=== PATIENT | male | born 1960 | race Caucasian/White ===

== ENCOUNTER → 2022-08-14 13:45 | Outpatient (BNVA) | payer MEDICARE, MEDICAID, SELFPAY | PROVIDERS: PCP Internal Medicine; Visit Provider Nurse Practitioner Family | DX: G47.33 Obstructive sleep apnea (adult) (pediatric) (principal); G47.50 Parasomnia, unspecified; F09 Unspecified mental disorder due to known physiological condition; R41.3 Other amnesia; R41.89 Other symptoms and signs involving cognitive functions and awareness; I10 Essential (primary) hypertension; Z99.89 Dependence on other enabling machines and devices | CPT/HCPCS: 99202 ==

== ENCOUNTER 2022-10-16 13:13 | Outpatient (REF) | payer MEDICARE, MEDICAID, SELFPAY ==
--- NOTE | 2022-10-16 13:18 | EEG_ITS ---
This is a 16 channel EEG with an EKG lead. The patient is reported awake during the tracing. Background EEG rhythm is 10 to 12 hertz 5 to 20 microvolt posteriorly and lower amplitude fast anteriorly. Photic stimulation does not produce any significant abnormality and hyperventilation is unremarkable. Cardiac lead does not reveal any significant abnormality. No sharp wave spikes or paroxysmal tendency noted. IMPRESSION: Unremarkable EEG. MD TAVIA Powers/KENIA / [id number]
== END 2022-10-16 13:14 | disposition home or self-care (01) ==
LOC: HO.NEURO 13:13
PROVIDERS: PCP Internal Medicine; Visit Provider Nurse Practitioner Family
DX: F09 Unspecified mental disorder due to known physiological condition (principal); G47.50 Parasomnia, unspecified; R41.3 Other amnesia
CPT/HCPCS: 95816

== ENCOUNTER 2022-11-18 10:20 | Outpatient (REF) | payer MEDICARE, MEDICAID, SELFPAY ==
--- NOTE | ~2022-11-18 | MR_ITS ---
EXAMINATION: MR BRAIN WITHOUT CONTRAST CLINICAL INFORMATION: Cognitive decline and memory changes. COMPARISON: None available. TECHNIQUE: Multiplanar, multisequence imaging of the brain was performed without contrast. FINDINGS: No diffusion abnormalities are identified to suggest an acute or subacute infarct. The ventricles are normal in size. No mass effect or midline shift is seen. No brain parenchymal signal abnormality is noted. No extra-axial fluid collections are seen. The brainstem and cerebellum are normal. The gradient refocused acquisition is normal. The craniovertebral junction, marrow signal, and midline structures are normal. The major intracranial flow voids at the level of the [place] are preserved. The dural venous sinus flow voids are maintained. The mastoid air cells are well aerated. There is subtotal mucosal opacification of the right sphenoid sinus and moderate ethmoid sinus mucosal thickening bilaterally. There is milder mucosal thickening lining the alan of the maxillary sinuses and dependent frontal sinus cavities bilaterally. MR/MR head/brain wo con IMPRESSION: No acute intracranial process. Normal MRI of the brain. Mucosal thickening in the paranasal sinuses as described, most severely affecting the right sphenoid sinus; correlate for any underlying acute symptomatology.
== END 2022-11-18 10:21 | disposition home or self-care (01) ==
LOC: HO.MRI 10:20
PROVIDERS: PCP Internal Medicine; Visit Provider Nurse Practitioner Family
DX: R41.89 Other symptoms and signs involving cognitive functions and awareness (principal); F09 Unspecified mental disorder due to known physiological condition; R41.3 Other amnesia; G47.50 Parasomnia, unspecified; I10 Essential (primary) hypertension
CPT/HCPCS: 70551

== ENCOUNTER 2022-11-29 13:38 | Outpatient (AMB) | payer MEDICARE, MEDICAID, SELFPAY ==
--- NOTE | 2022-11-29 13:43 | MHC.OFFVIS ---
Intake Vital Signs 11/29/22 13:44 Height 6 ft 1 in Weight 236 lb BMI 31.1 BP 110/82 Blood Pressure Location Rt brachial Position Sitting Pulse 74 Pulse Source Pulse Oximeter Pulse Oximetry (%) 97 Oxygen Delivery Method Room Air Intake Visit Reasons: 3m follow up memory loss -Confirmed Intake Note: Patient presents for 3 month follow up memory loss. Patient states give or take it's been ok, but my family is concerned because this happens often. Allergies shellfish derived Allergy (Severe, Verified 11/29/22 13:46) Anaphylaxis doxycycline Allergy (Unknown, Verified 11/29/22 13:46) Swelling Medication List - Last Reconciled 11/29/22 by Maggie Cervantes, LICO amlodipine 5 mg PO DAILY hydrocortisone 2.5% topical BID ipratropium bromide 2 sprays intranasal TID uf-kp-urycz-lutein-herbal 293 120 mcg-150 mcg -50 mg (Alive Men's 50 Plus Multivitamin) tabs PO pantoprazole 20 mg PO QAM rosuvastatin 40 mg PO DAILY valsartan 160 mg PO DAILY HPI HPI Comments History of Present Illness Details 62-yr-old male presents for f/u visit. Pt endorses the following interval medical history changes: he recently had kidney stones. His cognition is stable- still forgetful. He is not sleeping well. Goes to bed late, and then sleeping late. Endorses that he is on his phone and watching TV at night. Means to go to bed but does not. Only goes to bed earlier when his girlfriend comes over. Previous APAP compliance report shows APAP [id number], max pressure 13.8/hr, 90% overall compliance, 70% compliance > 4 hrs, residual AHI <2/hr. His family wants him to try Melatonin- but he does not want to. He did not try Namenda because he wanted to complete the neuro work-up 1st. The neuro-psych eval is scheduled for Nov. His clari MRI was normal. Although it did show sphenoid inflammation. He note she has had nasal congestion x's 3 yrs- and his previous tx's have not helped. He is f/b ENT- states he was advised to have a procedure to remove the sphenoid inflammation but he declined was worried it would just come back. EEG- Normal Labs- CBC, CMP, ESR, HIV, RPR- normal. PFSH Medical History (Updated 08/14/22 @ 17:20 by LICO Tim) Severe obstructive sleep apnea Asthma HLD (hyperlipidemia) CAD (coronary artery disease) COPD (chronic obstructive pulmonary disease) Diabetes mellitus Allergic rhinitis Chronic cough Nocturnal hypoxemia Surgical History Hx of tonsillectomy History of hernia repair Hx of cardiac cath Hx of CABG Hx of appendectomy Family History Mother Diabetes Hypertension Hyperlipidemia Father Diabetes Brother CAD (coronary artery disease) Sister CAD (coronary artery disease) Social History Alcohol intake: never Patient Tobacco Use Status: Never used Tobacco Review of Systems Const All systems reviewed & are unremarkable except as noted in HPI and below Physical Exam Vital Signs: Last Vital Signs Pulse 74 11/29/22 13:44 BP 110/82 11/29/22 13:44 Pulse Ox 97 11/29/22 13:44 Oxygen Delivery Method Room Air 11/29/22 13:44 BMI result Body Mass Index 31.1 Const General: cooperative and no acute distress Orientation/consciousness: patient oriented x3 HEENT Head: Yes normocephalic Resp Effort & Inspection: normal respiratory effort and able to speak in complete sentences Neuro General: patient oriented x3, gait normal and CN's II-XI intact bilaterally Cognition (Neuro): normal cognition Motor exam (neuro): 5/5 motor strength present throughout Psych Appearance: grossly normal Mental Status: mental status grossly normal Speech and movement: Normal speech and movement present Affect: normal affect Attitude: cooperative Thought process: Normal thought process present Thought content: Normal thought content present Insight: Good insight present (Psych) Judgement: Good judgement present (Psych) Assessment & Plan Assessment & Plan (1) Cognitive dysfunction: Comment: MMSE 27/30. Excellent clock drawing. Code(s): F09 - Unspecified mental disorder due to known physiological condition (2) Parasomnia: Comment: talks, acts out, and feels nocturnal tremors. Code(s): G47.50 - Parasomnia, unspecified (3) RUMA on CPAP: Code(s): G47.33 - Obstructive sleep apnea (adult) (pediatric) Plan Reviewed labs- WNL. Brain MRI w/o- no findings to explain pt;s cognitive s/s. Pt advised to f/u w/ ENT- will forward MRI report to ENT.. EEG- normal. Will f/u on order for comprehensive neuro-psych evaluation. Hold Memantine 5mg qhs. Discussed strategies to improve sleep hygiene. Continue APAP 6-16 cmH2O. f/u in 3 months or sooner prn. Medications: Discontinued memantine Discontinued Reason: Doctor's Order 5 mg PO QPM 30 days 30 tabs 3RF Coding Level of Care Code Est Pt Level 4 (59443) Diagnoses Cognitive dysfunction F09 Parasomnia G47.50 RUMA on CPAP G47.33
[2022-11-29 13:44] VITALS: BP 110/82; PULSE 74; O2SAT 97; BMI 31.1
== END 2022-11-29 14:28 | disposition home or self-care (01) ==
PROVIDERS: PCP Internal Medicine; Visit Provider Nurse Practitioner Family
DX: R41.89 Other symptoms and signs involving cognitive functions and awareness (principal); G47.50 Parasomnia, unspecified; G47.33 Obstructive sleep apnea (adult) (pediatric)
CPT/HCPCS: 99214

== ENCOUNTER → 2022-11-29 13:38 | Outpatient (BNVA) | payer MEDICARE, MEDICAID, SELFPAY | PROVIDERS: PCP Internal Medicine; Visit Provider Nurse Practitioner Family | DX: F09 Unspecified mental disorder due to known physiological condition (principal); G47.50 Parasomnia, unspecified; G47.33 Obstructive sleep apnea (adult) (pediatric) | CPT/HCPCS: 99212 ==

== ENCOUNTER 2023-06-12 13:06 | Outpatient (AMB) | payer MEDICARE, MEDICAID, SELFPAY ==
[2023-06-12 13:09] VITALS: BP 102/60; PULSE 78; O2SAT 98; BMI 29.1
--- NOTE | 2023-06-12 13:09 | MHC.OFFVIS ---
Intake Vital Signs 06/12/23 13:09 Height 6 ft 1 in Weight 220 lb 6 oz BMI 29.1 BP 102/60 Blood Pressure Location Rt brachial Position Sitting Pulse 78 Pulse Source Pulse Oximeter Pulse Oximetry (%) 98 Oxygen Delivery Method Room Air Intake Visit Reasons: f/u appt-CONF Jingle Writer Required: No Accompanied by: Self / Same As Patient Allergies shellfish derived Allergy (Severe, Verified 06/12/23 13:15) Anaphylaxis doxycycline Allergy (Unknown, Verified 06/12/23 13:15) Swelling Medication List - Last Reconciled 06/12/23 by LICO Tim amlodipine 5 mg PO DAILY aspirin (Adult Aspirin Regimen) 81 mg PO DAILY hydrocortisone 2.5% topical BID ipratropium bromide 2 sprays intranasal TID kx-qi-uktyt-lutein-herbal 293 120 mcg-150 mcg -50 mg (Alive Men's 50 Plus Multivitamin) tabs PO pantoprazole 20 mg PO QAM rosuvastatin 40 mg PO DAILY valsartan 160 mg PO DAILY HPI HPI Comments History of Present Illness Details 63-yr-old male presents for f/u visit. Pt denies any significant interval medical changes. Pt reports he is still struggling with sleep. Typically he sleeps 6.5-7 hrs, if he sleeps > 8 hrs he will wake up with headache and back pain. Sometimes, if he wakes up to void, he has difficulty falling back asleep. He is prone to staying up late watching TV or on his phone. Typical bedtime 4-7am, or 11am, and then sleeps until it has been 6+ hours. Today, he notes he does try to go to bed earlier when he has an early appointment, but then takes a couple of hours to fall asleep. Note, that he considers today's 1pm appointment as early. He is overall complaint w/ his CPAP- if he does not use he will wake up with a sore throat. Review of compliance repirt shows pt does use it between 12am and 2-3pm. 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 In the past, he barely saw daylight . He is not exercising. Although he is doing PT. He continues to have neck pain f/b pain management. He has not had neuro-psych eval. Compliance Report, 05/12/2023 - 06/10/2023 Average usage (days used) 5 hours 44 minutes Median usage (days used) 5 hours 55 minutes Total used hours (value since last reset - 06/10/2023) 6,373 hours AirSense 10 AutoSet Serial number [id number] Mode AutoSet Min Pressure 6 cmH2O Max Pressure 12 cmH2O, w/ Maximum: 11.7 cmH2O EPR Fulltime EPR level 3 Residual AHI: 2.0/hr PFSH Medical History Severe obstructive sleep apnea Asthma HLD (hyperlipidemia) CAD (coronary artery disease) COPD (chronic obstructive pulmonary disease) Diabetes mellitus Allergic rhinitis Chronic cough Nocturnal hypoxemia Surgical History Hx of tonsillectomy History of hernia repair Hx of cardiac cath Hx of CABG Hx of appendectomy Family History Mother Diabetes Hypertension Hyperlipidemia Father Diabetes Brother CAD (coronary artery disease) Sister CAD (coronary artery disease) Social History Alcohol intake: never Patient Tobacco Use Status: Never used Tobacco Physical Exam Vital Signs: Last Vital Signs Pulse 78 06/12/23 13:09 BP 102/60 06/12/23 13:09 Pulse Ox 98 06/12/23 13:09 Oxygen Delivery Method Room Air 06/12/23 13:09 BMI result Body Mass Index 29.1 Const General: cooperative and no acute distress Orientation/consciousness: patient oriented x3 Resp Effort & Inspection: normal respiratory effort and able to speak in complete sentences Neuro General: patient oriented x3 Cranial nerves: Yes CN's II-XII intact bilaterally Cognition (Neuro): normal cognition Psych Appearance: grossly normal Mental Status: mental status grossly normal Speech and movement: Normal speech and movement present Affect: normal affect Attitude: cooperative Assessment & Plan Assessment & Plan (1) RUMA on CPAP: Code(s): G47.33 - Obstructive sleep apnea (adult) (pediatric) (2) Cognitive dysfunction: Comment: MMSE 27/30. Excellent clock drawing. Code(s): F09 - Unspecified mental disorder due to known physiological condition (3) Circadian rhythm sleep disorder, delayed sleep phase type: Code(s): G47.21 - Circadian rhythm sleep disorder, delayed sleep phase type Plan Brain MRI w/o- no findings to explain pt;s cognitive s/s. Pt advised to f/u w/ ENT- will forward MRI report to ENT.. EEG- normal. Comprehensive neuro-psych evaluation- pt is currently on wait list at [facility]. In the meantime, try Duloxetine 30mg qd- for mood, motivation. Reviewed common side effects including but not limited to risk for worsening mood, advised patient to let us know of any adverse effects. Information shared w/ pt on strategies to improve sleep hygiene and readjust sleep schedule in setting of shift work disorder.. Continue APAP 6-16 cmH2O. f/u in 6 months or sooner prn. Medications: New duloxetine 30 mg PO DAILY 30 caps 3RF 30 days Coding Level of Care Code Est Pt Level 4 (40521) Diagnoses RUMA on CPAP G47.33 Cognitive dysfunction F09 Circadian rhythm sleep disorder, delayed sleep phase type G47.21
== END 2023-06-12 14:05 | disposition home or self-care (01) ==
PROVIDERS: PCP Internal Medicine; Visit Provider Nurse Practitioner Family
DX: G47.33 Obstructive sleep apnea (adult) (pediatric) (principal); R41.89 Other symptoms and signs involving cognitive functions and awareness; G47.21 Circadian rhythm sleep disorder, delayed sleep phase type
CPT/HCPCS: 99214

== ENCOUNTER → 2023-06-12 13:06 | Outpatient (BNVA) | payer MEDICARE, MEDICAID, SELFPAY | PROVIDERS: PCP Internal Medicine; Visit Provider Nurse Practitioner Family | DX: G47.33 Obstructive sleep apnea (adult) (pediatric) (principal); G47.21 Circadian rhythm sleep disorder, delayed sleep phase type; F09 Unspecified mental disorder due to known physiological condition | CPT/HCPCS: 99212 ==

== ENCOUNTER 2023-12-22 09:33 | Outpatient (AMB) | payer MEDICARE, MEDICAID, SELFPAY ==
--- NOTE | 2023-12-22 09:45 | A.OFFVIS_ITS ---
Vital Signs 12/22/23 09:50 Height 6 ft 1 in Weight 227 lb BMI 29.9 BP 138/98 H Blood Pressure Location Rt brachial Position Sitting Intake Visit Reasons: Follow up Intake Note: Patient presents for follow up. Allergies shellfish derived Allergy (Severe, Verified 12/22/23 09:51) Anaphylaxis doxycycline Allergy (Unknown, Verified 12/22/23 09:51) Swelling Medication List - Last Reconciled 12/22/23 by LICO Tim amlodipine 5 mg PO DAILY aspirin (Adult Aspirin Regimen) 81 mg PO DAILY budesonide-formoterol 160-4.5 mcg/actuation 2 puffs inhalation BID duloxetine 30 mg PO DAILY 30 days hydrocortisone 2.5% topical BID ipratropium bromide 2 sprays intranasal TID vv-nr-rdruw-lutein-herbal 293 120 mcg-150 mcg -50 mg (Alive Men's 50 Plus Multivitamin) tabs PO pantoprazole 20 mg PO QAM rosuvastatin 40 mg PO DAILY valsartan 160 mg PO DAILY HPI Comments Details: 63-yr-old male presents for f/u visit. Pt denies any significant interval medical changes. He never started duloxetine- was wary of side effects. Pt reports he is still struggling with sleep. Typically he wants to get 6 hrs of sleep a night. Sometimes sleep longer, but sometimes not. States he can no longer go to sleep prior to 11pm- but then may not actually sleep until 3am-11am. He make take unintentional cat naps- which further prevent him from falling asleep. Once he picks up his phone or starts watching TV, he just does not stop. But he states he needs the TV as background noise. Sometimes, if he wakes up to void, he has difficulty falling back asleep. If he does wake up at night, it can be difficult to fall back asleep. He may start ruminating on old issues. He is overall complaint w/ his CPAP. 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 In the past, he barely saw daylight . He has tried Melatonin at 10pm. He currently lives with his sister and nephew's children's in a 2 floor house. He is not exercising, especially when his back is bothering him more. And does not have anyone to walk with. He completed PT which helped during the session but this did not last. He had a neck injection last month- which did not help much. He was seeing a chiropractor but no longer. He states that at times he is forgetful, especially conversations. He tries to not stress about this too much. He has not had neuro-psych eval. Compliance Report, 09/22/2023 - 12/20/2023 Usage days 87% Usage days > 4 hrs- 63% Average usage (days used) 5 hours 47 minutes AirSense 10 AutoSet Serial number [id number] Mode AutoSet Min Pressure 6 cmH2O Max Pressure 12 cmH2O, w/ Maximum: 11.7 cmH2O EPR Fulltime EPR level 3 Residual AHI: 3.2/hr PFSH Medical History Severe obstructive sleep apnea Asthma HLD (hyperlipidemia) CAD (coronary artery disease) COPD (chronic obstructive pulmonary disease) Diabetes mellitus Allergic rhinitis Chronic cough Nocturnal hypoxemia Surgical History Hx of tonsillectomy History of hernia repair Hx of cardiac cath Hx of CABG Hx of appendectomy Family History Mother Diabetes Hypertension Hyperlipidemia Father Diabetes Brother CAD (coronary artery disease) Sister CAD (coronary artery disease) Social History Alcohol intake: never Patient Tobacco Use Status: Never used Tobacco Physical Exam Vital Signs: Last Vital Signs BP 138/98 H 12/22/23 09:50 BMI result Body Mass Index 29.9 Const General: cooperative and no acute distress Orientation/consciousness: patient oriented x3 HEENT Head: Yes normocephalic Resp Effort & Inspection: normal respiratory effort and able to speak in complete sentences Neuro General: patient oriented x3 Cranial nerves: Yes CN's II-XII intact bilaterally Cognition (Neuro): normal cognition Motor exam (neuro): 5/5 motor strength present throughout Psych Appearance: grossly normal Mental Status: mental status grossly normal Speech and movement: Normal speech and movement present Affect: normal affect Attitude: cooperative Thought process: Normal thought process present Thought content: Normal thought content present Insight: Good insight present (Psych) Judgement: Good judgement present (Psych) Assessment & Plan Assessment & Plan (1) RUMA on CPAP: Code(s): G47.33 - Obstructive sleep apnea (adult) (pediatric) Category: Medical (2) Cognitive dysfunction: Comment: MMSE 27/30. Excellent clock drawing. Code(s): F09 - Unspecified mental disorder due to known physiological condition Category: Medical (3) Circadian rhythm sleep disorder, delayed sleep phase type: Code(s): G47.21 - Circadian rhythm sleep disorder, delayed sleep phase type Category: Medical Plan Brain MRI w/o- no findings to explain pt;s cognitive s/s. Pt advised to f/u w/ ENT- will forward MRI report to ENT.. EEG- normal. Comprehensive neuro-psych evaluation- pt is currently on wait list at [facility]. Pt opted not to try Duloxetine. He is open to trying Amitriptyline 10-20mg qhs. Information shared w/ pt on strategies to improve sleep hygiene and readjust sleep schedule in setting of shift work disorder. - such as setting timer to turn off his phone, stop watching TV, scheduling early day activities. Continue APAP 6-16 [id number] > 4 hrs, as pt has good effect from use. f/u in 6 months or sooner prn. Medications: New amitriptyline 10 - 20 mg (1 - 2 x 10 mg) PO BEDTIME 30 days 60 tabs 3RF Discontinued duloxetine Discontinued Reason: Patient Refused 30 mg PO DAILY 30 days 30 caps 3RF Coding Level of Care Code Est Pt Level 4 (15620) Diagnoses RUMA on CPAP G47.33 Cognitive dysfunction F09 Circadian rhythm sleep disorder, delayed sleep phase type G47.21
[2023-12-22 09:50] VITALS: BP 138/98; BMI 29.9
== END 2023-12-22 10:49 | disposition home or self-care (01) ==
PROVIDERS: PCP Internal Medicine; Visit Provider Nurse Practitioner Family
DX: G47.33 Obstructive sleep apnea (adult) (pediatric) (principal); G47.21 Circadian rhythm sleep disorder, delayed sleep phase type; F09 Unspecified mental disorder due to known physiological condition
CPT/HCPCS: 99214

== ENCOUNTER → 2023-12-22 09:33 | Outpatient (BNVA) | payer MEDICARE, MEDICAID, SELFPAY | PROVIDERS: PCP Internal Medicine; Visit Provider Nurse Practitioner Family | DX: G47.33 Obstructive sleep apnea (adult) (pediatric) (principal); G47.21 Circadian rhythm sleep disorder, delayed sleep phase type; F09 Unspecified mental disorder due to known physiological condition | CPT/HCPCS: 99212 ==

== ENCOUNTER 2024-06-16 13:54 | Outpatient (AMB) | payer MEDICARE, MEDICAID, SELFPAY ==
--- NOTE | 2024-06-16 14:01 | MHC.OFFVIS ---
Vital Signs 06/16/24 14:05 Height 6 ft 1 in Weight 226 lb BMI 29.8 BP 120/70 Blood Pressure Location Rt brachial Position Sitting Pulse 74 Pulse Source Pulse Oximeter Pulse Oximetry (%) 96 Oxygen Delivery Method Room Air Intake Visit Reasons: Follow up Intake Note: Patient presents follow up RUMA. Compliance in chart Fur Trimmer Required: No Accompanied by: Self / Same As Patient Allergies shellfish derived Allergy (Severe, Verified 06/16/24 14:05) Anaphylaxis doxycycline Allergy (Unknown, Verified 06/16/24 14:05) Swelling Medication List - Last Reconciled 06/16/24 by LIOC Tim amitriptyline 10 - 20 mg (1 - 2 x 10 mg) PO BEDTIME 30 days amlodipine 5 mg PO DAILY aspirin (Adult Aspirin Regimen) 81 mg PO DAILY budesonide-formoterol 160-4.5 mcg/actuation 2 puffs inhalation BID hydrocortisone 2.5% topical BID ipratropium bromide 2 sprays intranasal TID sz-gd-yfjyr-lutein-herbal 293 120 mcg-150 mcg -50 mg (Alive Men's 50 Plus Multivitamin) tabs PO pantoprazole 20 mg PO QAM rosuvastatin 40 mg PO DAILY valsartan 160 mg PO DAILY HPI Comments Details: 64-yr-old male presents for f/u visit of RUMA. Pt reports he stopped using his CPAP about a month ago- he feels his RUMA has resolved. After stopping CPAP, he started using an OTC Mullein leaf liquid drops- 2 gtts undiluted everyday, and oil of oregano. He states is now feeling better overall- no longer having dry mouth from the CPAP machine, but also his chronic cough and sputum production has resolved. Pt did have ENT consult but by then his nasal s/s had improved. He also had a bout of kidney stones 2-3 months ago- states he managed this with tea of parsley, lemon, honey. He states his primary bothersome symptom is left arm/shoulder pain and arm tingling- he was scheduled to have a cervical repair however he had to postpone this as his sister was recently diagnosed with acute brown sequard syndrome and he has had to help care for her- he lives with her. He states he needs to f/u with his surgeon. He states his memory is stable- has periods of forgetfulness. He is taking amitriptyline just a couple of times. He has not had the neuro-psych test yet- he is still on the waitlist. 12/22/2023, Previous HPI: Pt denies any significant interval medical changes. He never started duloxetine- was wary of side effects. Pt reports he is still struggling with sleep. Typically he wants to get 6 hrs of sleep a night. Sometimes sleep longer, but sometimes not. States he can no longer go to sleep prior to 11pm- but then may not actually sleep until 3am-11am. He make take unintentional cat naps- which further prevent him from falling asleep. Once he picks up his phone or starts watching TV, he just does not stop. But he states he needs the TV as background noise. Sometimes, if he wakes up to void, he has difficulty falling back asleep. If he does wake up at night, it can be difficult to fall back asleep. He may start ruminating on old issues. He is overall complaint w/ his CPAP. 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 In the past, he barely saw daylight . He has tried Melatonin at 10pm. He currently lives with his sister and nephew's children's in a 2 floor house. He is not exercising, especially when his back is bothering him more. And does not have anyone to walk with. He completed PT which helped during the session but this did not last. He had a neck injection last month- which did not help much. He was seeing a chiropractor but no longer. He states that at times he is forgetful, especially conversations. He tries to not stress about this too much. He has not had neuro-psych eval. Compliance Report, 09/22/2023 - 12/20/2023 Usage days 87% Usage days > 4 hrs- 63% Average usage (days used) 5 hours 47 minutes AirSense 10 AutoSet Serial number [id number] Mode AutoSet Min Pressure 6 cmH2O Max Pressure 12 cmH2O, w/ Maximum: 11.7 cmH2O EPR Fulltime EPR level 3 Residual AHI: 3.2/hr [facility] Medical History Severe obstructive sleep apnea Asthma HLD (hyperlipidemia) CAD (coronary artery disease) COPD (chronic obstructive pulmonary disease) Diabetes mellitus Allergic rhinitis Chronic cough Nocturnal hypoxemia Surgical History Hx of tonsillectomy History of hernia repair Hx of cardiac cath Hx of CABG Hx of appendectomy Family History Mother Diabetes Hypertension Hyperlipidemia Father Diabetes Brother CAD (coronary artery disease) Sister CAD (coronary artery disease) Social History Alcohol intake: never Patient Tobacco Use Status: Never used Tobacco Physical Exam Vital Signs: Last Vital Signs Pulse 74 06/16/24 14:05 BP 120/70 06/16/24 14:05 Pulse Ox 96 06/16/24 14:05 Oxygen Delivery Method Room Air 06/16/24 14:05 BMI result Body Mass Index 29.8 Const General: cooperative and no acute distress HEENT Head: Yes normocephalic Resp Effort & Inspection: normal respiratory effort and able to speak in complete sentences Neuro Other: Alert and oriented with mild short-term memory lapses. Cranial nerves: Yes CN's II-XII intact bilaterally Cognition (Neuro): normal cognition Motor exam (neuro): 5/5 motor strength present throughout Psych Appearance: grossly normal Mental Status: mental status grossly normal Speech and movement: Normal speech and movement present Affect: normal affect Attitude: cooperative Thought process: Normal thought process present Thought content: Normal thought content present Insight: Good insight present (Psych) Judgement: Good judgement present (Psych) Assessment & Plan Assessment & Plan (1) Obstructive sleep apnea: Code(s): G47.33 - Obstructive sleep apnea (adult) (pediatric) Category: Medical (2) Cognitive dysfunction: Comment: MMSE 27/30. Excellent clock drawing. Code(s): F09 - Unspecified mental disorder due to known physiological condition Category: Medical (3) Circadian rhythm sleep disorder, delayed sleep phase type: Code(s): G47.21 - Circadian rhythm sleep disorder, delayed sleep phase type Category: Medical Plan Brain MRI w/o- no findings to explain pt;s cognitive s/s. Pt advised to f/u w/ ENT- will forward MRI report to ENT.. EEG- normal. Comprehensive neuro-psych evaluation- pt is currently on wait list at [facility]. We will request interval ENT consult notes. May use Amitriptyline 10-20mg qhs for sleep. Or may trial nervive nerve relief- OTC alpha lipoic supplement-which may benefit LUE paresthesias and pain. May try OTC nerve relief for LUE numbness/tingling while awaiting f/u on status of cervical spine surgery. Pt has stopped APAP 6-16 [id number] > 4 hrs- feels his sleep apnea has resolved. However, pt plans to have an upcoming cervical surgical repair, and thus pt is advised to undergo in-lab PSG study to assess status of sleep apnea, requesting in-lab sleep study as pt has cognitive impairment and has previously had difficulty performing home sleep studies. f/u in 6 months or sooner prn. Orders: Orders RT PSG in-lab sleep study Today F09 - Unspecified mental disorder due to known physiological condition, G47.33 - Obstructive sleep apnea (adult) (pediatric) Coding Level of Care Code Est Pt Level 4 (43142) Diagnoses Obstructive sleep apnea G47.33 Cognitive dysfunction F09 Circadian rhythm sleep disorder, delayed sleep phase type G47.21
[2024-06-16 14:05] VITALS: BP 120/70; PULSE 74; O2SAT 96; BMI 29.8
--- OUTSIDE RECORDS SUMMARY | 2024-06-16 16:38 | XMS_ITS | Clinical Summary ---
Author Organization [facility] Address [address] [place] [address] Care Team Providers Care Poultry Debeaker Name Role Phone Dallin Briseno MD Primary Care Provider [phone] Social History Tobacco Use Types Packs/Day Years Used Date Smoking Tobacco: Never Assessed Sex and Gender Information Value Date Recorded Sex Assigned at Not on file Gender Identity Not on file Sexual Orientation Not on file Job Start Date Occupation Industry Not on file Not on file Not on file Plan of Treatment Health Maintenance Due Date Last Done Comments Hepatitis C Screening 1960 COVID-19 Vaccine (#1) 1962 Depression Screening 1974 Preventative Health Evaluation 1980 DTap / Tdap / Td (1 - Tdap) 1981 Colon Cancer Screening (Colonoscopy) 2007 Shingrix-Zoster Vaccine (1 of 2) 2012 Influenza Vaccine (#1) 2023 01/14/2020 RSV Adult > 60+ Yrs or Pregn ant (1 - 1-dose 75+ series) 2037 Hepatitis B Vaccines Aged Out No long er eligible based on patient's age to complete this topic Pneumococcal Vaccine Aged Out No long er eligible based on patient's age to complete this topic RSV Ped < 20 months Aged Out No longe r eligible based on patient's age to complete this topic Care Teams Poultry Debeaker Relationship Specialty Start Date End Date Dallin Briseno MD [address] [place] [address] ANDER Baen [phone] PCP - General Internal Medicine 02/21/20
--- OUTSIDE RECORDS SUMMARY | 2024-06-16 16:38 | XMS_ITS | Encounter Summary ---
Author Organization [facility] [place], Address [address] [place] [address] Phone Care Team Providers Care Crystal Calibrator Name Role Phone Phill Meyer MD Primary Care Provider [phone] Encounter Details Date Type Department Care Team (Late st Contact Info) Description 12/31/2022 Documentation Only [facility], [address] [place] [phone] Phill Meyer MD [address] [place] [phone] Social History Tobacco Use Types Packs/Day Years Used Date Smoking Tobacco: Never Assessed Sex and Gender Information Value Date Recorded Sex Assigned at Not on file Legal Sex Male 2:04 PM EDT Gender Identity Not on file Sexual Orientation Not on file documented as of this encounter Plan of Treatment Not on file documented as of this encounter Visit Diagnoses Not on filedocumented in this encounter Care Teams Crystal Calibrator Relationship Specialty Start Date End Date Phill Meyer MD [address] [place] [phone] PCP - General Internal Medicine 12/31/22 documented as of this encounter
--- OUTSIDE RECORDS SUMMARY | 2024-06-16 16:38 | XMS_ITS | Encounter Summary ---
Author Organization [facility], Address [address] [place] [address] Phone Care Team Providers Care Emissions Engineer Name Role Phone Phill Meyer MD Primary Care Provider [phone] Encounter Details Date Type Department Care Team (Late st Contact Info) Description 12/31/2022 Documentation Only [facility], [address] [place] [phone] Phill Meyer MD [address] [place] [address] Social History Tobacco Use Types Packs/Day Years [...] on filedocumented in this encounter Care Teams Emissions Engineer Relationship Specialty Start Date End Date Phill Meyer MD [address] [place] [phone] PCP - General Internal Medicine 12/31/22 documented as of this encounter
--- OUTSIDE RECORDS SUMMARY | 2024-06-16 16:38 | XMS_ITS | Encounter Summary ---
Author Organization [facility], Address [address] [place] [address] Phone Care Team Providers Care Public Administration Professor Name Role Phone Phill Meyer MD Primary Care Provider [phone] Encounter Details Date Type Department Care Team (Late st Contact Info) Description 12/31/2022 Documentation Only [facility], [address] [place] [phone] Phill Meyer MD [address] [place] [phone] Social History Tobacco Use Types Packs/Day Years [...] on filedocumented in this encounter Care Teams Public Administration Professor Relationship Specialty Start Date End Date Phill Meyer MD [address] [place] [phone] PCP - General Internal Medicine 12/31/22 documented as of this encounter
--- OUTSIDE RECORDS SUMMARY | 2024-06-16 16:38 | XMS_ITS ---
Author Organization [facility] Address [address] [place] [address] Care Team Providers Care Medical Record Specialist Name Role Phone Aly Adhikari, * Prabhjot Primary Care Provider Niranjan Grace Unavailable [phone] Migration, Provider Unavailable Unavailable Allergies Allergen (clinical drug ingredient) Drug/Non Drug Allergy documented on EMR Reaction Allergy Type Onset Date Status SHELL FISH. (uncoded) Unknown Allergy [facility] Conversion Encounter Medications Medication SIG (Take, Route, Frequency, Duration) Notes Start Date End Date Status Losartan Potassium 25 MG 1 tab(s) orally once a day Active Omeprazole 40 MG 1 cap(s) orally as needed 12/05/2012 Active SUPREP BOWEL PREP KIT (OBSOLETE) 1.6 G-3.13 G-17.5 G/177 ML 177 ML ORALLY TWICE for 2 DOSE(S) *Please review for potential replacement for e-prescription and drug interaction check* 01/22/2017 Active Omeprazole 40 MG 1 cap(s) orally once a day for 90 days 01/22/2017 Active Encounters Encounter Location Date Provider Diagnosis [facility] [address] [place] [address] 11/22/2023 Provider Migration Gastro-esophageal reflux disease without esophagitis K21.9 and Encounter for screening for malignant neoplasm of colon Z12.11 Assessments Encounter Date Diagnosis (ICD Code) Assessment Notes Treatment Notes Treatment Clinical Notes Section Notes 11/22/2023 Gastro-esophagea l reflux disease without esophagitis (ICD-10 - K21.9) 11/22/2023 Encounter for screening for malignant neoplasm of colon (ICD-10 - Z12.11) Plan Of Treatment Medication Medication Name Sig Start Date Stop Date Notes SUPREP BOWEL PREP KIT (OBSOLETE) 1.6 G-3.13 G-17.5 G/177 ML 177 ML ORALLY TWICE for 2 DOSE(S) 01/22/2017 *Please review for potential replacement for e-prescription and drug interaction check* Omeprazole 40 MG 1 cap(s) orally once a day for 90 days 01/22/2017 Progress Notes * ELIZABETH MENENDEZDOB: [birth year] (64 yo M)Acc No.[id number]:11/22/2023 Patient:?ELIZABETH MENENDEZ Provider:? :1960???Age:63 Y???Sex:Male Daren e:11/22/2023 Address:[address] [place], [place] [phone] Pcp:* Prabhjot Lu M.D. Subjective: * Chief Complaints: * ???1. [facility] To [facility] Con version Encounter. * Medical History:? * Medications:?Taking Omeprazo le 40 MG Capsule Delayed Release 1 cap(s) orally as needed , Taking Losartan Potassium 25 MG Tablet 1 tab(s) orally once a day * Allergies:?SHELL FISH. . Objective: * Vitals:? Assessment: * Assessment: 1.?Gastro-esophageal reflux disease without esophagitis - K21.9 (Primary)???2.?Encounter for screening for malignant neoplasm of colon - Z12.11??? Plan: * Treatment: 2.?Encounter for screening f or malignant neoplasm of colon? Start SUPREP BOWEL PREP KIT (OBSOLETE) LIQUID, 1.6 G-3.13 G-17.5 G/177 ML, 177 ML, ORALLY, TWICE, 2 DOSE(S), 1, Refills 0, Notes to Pharmacist: *Please review for potential replacement for e-prescription and drug interaction check*.?? * Billing Information: * Visit Code:? * Procedure Codes:? * Electronic signature of Prov ider Migration on 06/16/2024 at 04:37 PM EDT Sign off status: Pending * Provider:? Date:?11/22/2023 Generated for Alexis murphy/Eligio/Denizitting on:?06/16/2024 04:37 PM EDT
--- OUTSIDE RECORDS SUMMARY | 2024-06-16 16:38 | XMS_ITS | Clinical Summary ---
Author Organization [facility] Address [address] [place] [address] Care Team Providers Care In Classroom Tutor Name Role Phone Phill Meyer MD Primary Care Provider [phone] Social History Tobacco Use Types Packs/Day Years Used Date Smoking Tobacco: Never Assessed Sex and Gender Information Value Date Recorded Sex Assigned at Not on file Legal Sex Male 2:04 PM EDT Gender Identity Not on file Sexual Orientation Not on file Plan of Treatment Health Maintenance Due Date Last Done Comments Colorectal Cancer Screening: Annual FOBT 2011 Colorectal Cancer Screening: Colonoscopy 2011 Colorectal Cancer Screening: Sigmoidoscopy 2011 Influenza Vaccine (Season Ended) 2024 Hepatitis B Vaccine Aged Out No longe r eligible based on patient's age to complete this topic Pneumococcal Vaccine: Peds ( 0 to 5 Years) and At-Risk Patients (6 to 49 Years) Aged Out No longer eligible b ased on patient's age to complete this topic Insurance Medicare Medicaid [place] Care Teams In Classroom Tutor Relationship Specialty Start Date End Date Phill Meyer MD [address] [address] PCP - General Internal Medicine 12/31/22
--- OUTSIDE RECORDS SUMMARY | 2024-06-16 16:38 | XMS_ITS | Clinical Summary ---
Author Organization [facility] Work4 Address [address] [place] [address] Phone Care Team Providers Care Coater Name Role Phone Phill Meyer MD Primary Care Provider [phone] Allergies Active Allergy Reactions Criticality Noted Date Comments Doxycycline Swelling High 01/03/2020 Paitent had swollen to his face and hands. Doxycycline Monohydrate Swelling High 01/03/2020 Viky had swollen to his face and hands. Shellfish Containing Products Hives High 11/14/2023 Hives and throat closing Medications FREESTYLE LANCETS MISC Use to test blood sugar once daily 06/28/19 21 Active albuterol HFA (PROAIR HFA ; PROVENTIL HFA ; VENTOLIN HFA) 90 mcg/actuation inhaler Sig - Route: Inhale 2 Puffs into the lungs See Admin Instructions. Take 2 puffs in the AM and 2 Puffs in the PM - Inhalation 08/20/19 23 Active alclomethasone (ACLOVATE) 0.05 % cream 05/21/19 24 Active amoxicillin (AMOXIL) 875 mg tablet Take 1 tablet (875 mg total) by mouth 2 (two) times a day. Active aspirin 81 mg EC tablet Take 1 tablet (81 mg total) by mouth 1 (one) time each day. 04/25/19 23 Active azelastine (ASTELIN) 137 mcg (0.1 %) nasal spray Administer 2 sprays into each nostril 2 (two) times a day. 07/18/19 22 Active azithromycin (Zithromax) 250 mg tablet Take by mouth. 10/08/19 24 Active blood-glucose meter kit 1 Device by Not Applicable route. 06/28/19 21 Active budesonide-for moteroL (SYMBICORT) 160-4.5 mcg/actuation inhaler 03/21/19 24 Active cholecalcifero l (VITAMIN D-3) 50 mcg (2,000 unit) capsule Take 50 mcg by mouth. Active fluticasone propion-salmet Robbie (ADVAIR DISKUS) 100-50 mcg/dose diskus inhaler Inhale 1 puff by mouth. 01/23/20 21 Active fluticasone propionate (FLONASE) 50 mcg/actuation nasal spray Administer 2 sprays into each nostril at bedtime. 07/18/19 22 Active fluticasone-um eclidinium-amirah anterol (Trelegy Ellipta) 200-62.5-25 mcg inhaler Inhale 1 puff (200 mcg total) by mouth 1 (one) time each day. 10/15/19 24 Active hydrocortisone 2.5 % cream Apply twice a day as needed in the rash for 10 days 02/29/20 23 Active ipratropium (ATROVENT) 21 mcg (0.03 %) nasal spray 03/28/19 22 Active ipratropium bromide (ATROVENT HFA INHL) Inhale 500 mcg by mouth. 04/25/19 23 Active glucose blood (Freestyle InsuLinx Test Strips) test strip USE TO TEST BLOOD SUGAR ONCE DAILY 11/22/19 21 Active zinc 1 mg/mL injection Take by mouth 1 (one) time each day. Active levocetirizine (XYZAL) 5 mg tablet Take 1 tablet (5 mg total) by mouth 1 (one) time each day. 03/21/19 24 Active predniSONE (DELTASONE) 20 mg tablet 05/14/19 24 Active valsartan (DIOVAN) 160 mg tablet Take 1 tablet (160 mg total) by mouth. 04/25/19 23 Active multivitamin with minerals (CENTRUM/CERTA VIT) 18-400 mg-mcg tablet tablet Take by mouth 1 (one) time each day. Active blood-glucose meter kit 1 Device by Does not apply route Once. 06/28/19 21 Active glucose blood (Freestyle InsuLinx Test Strips) test strip USE TO TEST BLOOD SUGAR ONCE DAILY 11/22/19 21 Active FREESTYLE LANCETS MISC Use to test blood sugar once daily 06/28/19 21 Active predniSONE (DELTASONE) 5 mg tablet PLEASE SEE ATTACHED FOR DETAILED DIRECTIONS 09/22/19 24 Active tezepelumab-ek ko (TEZSPIRE) Inject 1.91 mL (210 mg total) under the skin 1 (one) time. Active furosemide (LASIX) 40 mg tablet Take 1 tablet (40 mg total) by mouth 1 (one) time each day. Active amLODIPine (NORVASC) 5 mg tablet Take 1 tablet (5 mg total) by mouth 1 (one) time each day. 90 each 02/19/20 24 025 Active EpiPen 2-Praveen 0.3 mg/0.3 mL injectionIndic ations:Angioed byron, sequela INJECT 0.3 ML (0.3 MG TOTAL) INTO THE THIGH IF NEEDED FOR ANAPHYLAXIS. USE DIRECTED 2 each 3 03/23/19 25 Active ezetimibe (ZETIA) 10 mg tablet Take 1 tablet (10 mg total) by mouth 1 (one) time each day. 90 each 1 03/09/19 25 Active Additional Information Patient not taking.Reported on 05/07/2024 famotidine (PEPCID) 20 mg tablet Take 1 tablet (20 mg total) by mouth 2 (two) times a day. 01/13/20 24 Active rosuvastatin (CRESTOR) 40 mg tablet TAKE 1 TABLET BY MOUTH EVERY DAY 90 tablet 1 04/12/19 25 Active SUMAtriptan (IMITREX) 50 mg tablet Take 1 tablet (50 mg total) by mouth 1 (one) time if needed for migraine. May repeat dose once in 2 hours if no relief. Do not exceed 2 doses in 24 hours. 9 tablet 5 05/08/19 25 026 Active amitriptyline (ELAVIL) 25 mg tablet TAKE 1 TABLET BY MOUTH EVERYDAY AT BEDTIME 90 tablet 1 06/01/19 25 Active amitriptyline (ELAVIL) 25 mg tablet Take 1 tablet (25 mg total) by mouth at bedtime. 30 each 1 05/08/19 25 025 Discontinued Active Problems Problem Noted Date Diagnosed Date Anterior epistaxis 04/09/2024 Cervical spondylosis 12/23/2023 Overview (01/05/2024): Last Assessment & Plan: Patient reports neck pain that started around 2015, he had fallen asleep sitting up in a chair, his head fell forward quickly, he felt sudden pain in his posterior neck, felt like it was whiplash injury. He notes pain in the left shoulder, anterior lateral arm, at times will have numbness tingling in the fourth >third, fifth digits. He has tried ludy-ivt-ykswgyo meds including NSAIDs, recently tried putting castor oil over the area with a heating pad. No recent physical therapy for his neck. He had cortisone injections x 6 in [place] a few years back, does not feel it helped. More recently he had C7-T1 DANIEL May 2023 that gave 100% reduction in left arm paresthesias, then had bilateral C6 TFE November 2023 that gave significant improvement in his left arm pain for about 2 months, symptoms are now recurring. He does not feel the most recent cervical injection helped his neck pain. He also has history of left subacromial injection April 2023, it did temporarily help his shoulder pain. He states there are times he trips on and off, may have some mild balance issues, jumpy legs at rest. He rates his neck pain a 7/10 for example after standing to cook for a period of time. There are days where his pain will be a 2/10, but seems to be worse with activity. He denies headaches, unless he does not sleep well at night . He had C-spine MRI 09-23 at [facility] that shows C6-7 degenerative disc osteophyte, severe left foraminal stenosis, moderate right foraminal stenosis. No cord compression, no signal change seen in the spinal cord at any level. I reviewed the MRI images with the patient in detail on the computer. Mr. Ramon has overall mild findings on his C-spine MRI, however he does have C6-7 spondylosis with severe left foraminal stenosis, could be contributing to his neck pain and left arm symptoms. He may also have a component of left shoulder degenerative changes contributing, did see some improvement after left subacromial shoulder injection. I gave him prescription for physical therapy for the neck and shoulder, asked him to follow-up afterward. We also talked about trying acupuncture, name provided. I will also review his MRI with Dr. Watson, see if she would recommend either C6-7 artificial disc replacement or ACDF if patient is not improving after PT (with traction). I asked him to call with any concerns or questions. Assessment & Plan (04/07/2024 2:51 PM EST): Mr. Ramon continues to suffer with neck pain and radiation to the left upper extremity. Things have gotten much worse over the past couple of months. He describes pain radiating from the neck to the left shoulder, down the triceps, ulnar forearm into all of the fingers of the left hand. He denies right-sided symptoms. Make it to therapy after his last visit because of some car issues. At this point his symptoms are so bad that he would rather just proceed with surgery. Dr. Watson had previously reviewed his MRI from [facility] revealing degenerative changes most significant at C6-7. C6-7 anterior cervical discectomy and fusion was offered. At this point the patient would like to except that offer. Risks, benefits, and alternatives to surgery were discussed in detail. He asked appropriate questions, appears to understand, and wishes to proceed. I gave him a bottle of Hibiclens and directions on how to use it. He asked for something for pain and I told him I would send in a prescription for a Medrol Dosepak but I could not offer him narcotic pain medication until the time of surgery. He did have a prescription for prednisone in the past but has not used that in many months. I told him that Dr. Watson's secretary to board of commissioners would be in touch with him later this week about scheduling. Chronic bilateral low back pain without sciatica 12/23/2023 Overview (01/05/2024): Last Assessment & Plan: Patient also complains of low back pain, states this last week his back pain has been significant, he has spasm, has a hard time standing and straightening up. He tried ibuprofen 800 mg but it is not helping. He states his back feels stiff, like he is a hunched back. He has had issues on and off with his low back, but states this flareup the past week was a 7-8/10 pain. Prior to a week ago he would have rated his low back pain on average of 2/10. He had physical therapy for his low back end of 2022, went for about 3 months. He states they had been stretching his leg, he had worse pain so they stopped, did not feel it was helping. He does feel the stretching exercises helped him while he was in PT, continues those at home. Mr. Ramon has low back pain, with minimal findings on MRI. He had MRI lumbar spine 09/02/2023 at [facility], no significant stenosis noted, I reviewed images with patient in detail on the computer. We will address his neck pain first since this is his primary issue. We did talk about trying acupuncture, name provided. We also talked about trying statin vacation x 2 weeks to see if this helps his low back/muscular stiffness and pain. I looked back at his labs, a year ago he had lipid panel WNL. However he will call his PCP to make sure they will clear him for the statin vacation. He has history of triple bypass 2017. Class 1 obesity 11/14/2023 Groin pain, right 05/02/2022 Dizziness and giddiness 03/26/2022 Overview (04/19/2024): Dizziness and giddiness; Note: Date Diagnosed: 03/26/2022 10:12 AM (R42) Sensorineural hearing loss (SNHL) of both ears 0 03/26/2022 Overview (04/19/2024): Sensorineural hearing loss, bilateral; Note: Date Diagnosed: 03/26/2022 10:12 AM (H90.3) Vasomotor rhinitis 03/26/2022 Overview (04/19/2024): Vasomotor rhinitis; Note: Date Diagnosed: 03/26/2022 10:45 AM (J30.0) Nocturnal hypoxemia 01/09/2021 Chronic cough 06/16/2020 Perennial allergic rhinitis 06/16/2020 Diabetes mellitus type 2, co ntrolled, without complications ([facility] V24, [facility] V28) 02/06/2020 Overview (11/14/2023): 02/2020 Lab test negative for COVID-19 virus 01/20/2020 COPD (chronic obstructive pu lmonary disease) ([facility] V24, [facility] V28) 12/22/2019 Asthma 12/07/2019 CAD (coronary artery disease) 12/07/2019 Overview (11/14/2023): 04/2018 Triple bypass Last Assessment & Plan: The patient has a history of coronary artery disease. He denies any chest pain with exertion. The patient underwent a coronary artery bypass surgery in April 2018. Afterwards, he was complaining of episodes of chest discomfort and he underwent a nuclear stress test in December 2018 that suggested the presence of ischemia. As a result, he underwent a new left heart catheterization in January 2019 that showed patent bypass grafts and unchanged muscogee multivessel CAD. On today's visit, the patient complains of occasional chest tightness sensation during his coughing spells. However, he denies any exertional angina. As such, his chest discomfort that occurs during his coughing spells is not likely to be cardiac in nature. The patient is currently on medical therapy with amlodipine, rosuvastatin, and aspirin. At this point, would recommend to continue his current medical therapy. Assessment & Plan (03/08/2024 12:15 PM EST): The patient has a history of coronary artery disease. Currently, the patient denies any chest pain at rest or with exertion. The patient continues on secondary preventive therapy for CAD, including: aspirin, statin. Will continue current therapy. The patient has a history of coronary artery disease. During today's visit, we reviewed the warning signs that should prompt an urgent medical evaluation. Specifically, we discussed that the patient should go to the hospital if she develops any chest discomfort at rest or worsening chest discomfort with exertion. Depression 12/07/2019 Overview (11/14/2023): Took Zoloft, stopped it because he wasn't feeling any better. GERD (gastroesophageal reflux disease) 0 Overview (11/14/2023): H/o stomach ulcer Hyperlipidemia 12/07/2019 Overview (11/14/2023): Last Assessment & Plan: The patient has a history of hyperlipidemia. He also has a history of coronary artery disease. He is currently on rosuvastatin. We will continue his current therapy. Assessment & Plan (03/08/2024 12:15 PM EST): The patient has a history of hyperlipidemia. The patient is currently on rosuvastatin 40 mg orally daily. We will order a new lipid panel to evaluate the patient's current lipid control and determine if any adjustment are needed in the lipid lowering therapy. Orders: Comprehensive metabolic panel; Future Lipid panel; Future Hypertension 12/07/2019 Overview (11/14/2023): Last Assessment & Plan: The patient has a history of arterial hypertension. The patient's blood pressure today was noted to be well controlled. We'll continue the current antihypertensive medication regimen. Assessment & Plan (03/08/2024 12:15 PM EST): The patient has a history of arterial hypertension. The patient's blood pressure today was noted to be well controlled. We'll continue the current antihypertensive medication regimen. RUMA (obstructive sleep apnea) 12/07/2019 Overview (11/14/2023): CPAP 6-16 through [facility] Overnight oxymetry on 05/09/2020 shows O2>90-99.8% of time SMS Home Sleep Apnea Test: Date 01/03/2021; Wt 243#; BMI 32; SVEN (AHI) 35, AI 4; HI 31; Unclassified apneas 0; Obstructive apneas 24; Central apneas 0; Mixed apneas 0; hypopneas 214; average oxygen saturation 90% (lowest 78% with saturations <88% for 5% or more of study) - Obstructive Sleep Apnea - severe; mostly hypopneas with some obstructive apneas; with sleep related hypoventilation by 2020 home sleep apnea test. Resolved Problems Problem Noted Date Diagnosed Date Resolved Date Dyspnea 05/28/2022 01/08/2024 Overview (11/14/2023): Last Assessment & Plan: The patient continues to report dyspnea on exertion associated with chest discomfort. He explains this normally occurs when he is walking up and down stairs or uphill. He underwent a diagnostic cardiac catheterization April 25, 2022 which showed no changes to coronary anatomy and patent grafts likely reflecting a false positive nuclear stress test as well as noncardiac related shortness of breath/chest discomfort. He has not utilized his inhalers as needed. He is compliant with his CPAP. We discussed his symptoms and results of his catheterization in great detail. His symptoms are likely related to his history of asthma. I have encouraged him to use his inhalers as prescribed. He plans to follow-up with pulmonology. He has an appointment to see them in August, however he will try to get an appointment earlier. Patient advised to seek emergency medical attention by calling 911 if they were to develop severe dyspnea, chest pain that did not resolve with rest or nitroglycerin, or if they were to faint. Encounters Date Type Department Care Team Description 05/31/2024 4:19 PM EDT - 05/31/2024 11:59 PM EDT Hospital Encounter [facility] CT Scan [address] [place] [phone] Acute intractable headache, unspecified headache type; Primary hypertension Discharge Disposition: Home or Self Care 05/28/2024 Telephone Neurosurgery [facility] [address] [place] [phone] [place], [place] 05/27/2024 Telephone [facility] [address] [place] [phone] Barber Poole MD Pre-op Visit 05/07/2024 8:30 AM EST Office Visit Internal Medicine - [place] [address] [place] [address] Phill Meyer MD Acute intractable headache, unspecified headache type (Primary Dx); Primary hypertension 04/19/2024 Telephone Internal Medicine - [place] [address] [facility] [address] [place] [address] Phill Meyer MD Medication 04/18/2024 11:56 AM EST - 04/18/2024 2:16 PM EST Emergency [facility] Emergency [address] [place] [phone] Jae Madsen MD Influenza A (Primary Dx) Discharge Disposition: Home or Self Care 04/08/2024 Telephone Internal Medicine - [place] [address] [place] [phone] 04/07/2024 1:00 PM EST Office Visit Neurosurgery [facility] [address] [facility] [address] [place] [address] Adam Florian PA Cervical spondylosis (Primary Dx) from Last 3 Months Immunizations Name Administration Dates Next Due Influenza, Unspecified 01/14/2020 Zoster recombinant (Shingrix) 19yo and older 01/2023,06/29/2022 Surgical History Surgery Date Site/Laterality Comments CORONARY ARTERY BYPASS GRAFT 04/2018 PROCEDURE: HISTORICAL CABG; COMMENT: x 3 HERNIA REPAIR 2008 PROCEDURE: HISTORICAL HERNIA REPAIR/UMB CARDIAC CATHETERIZATION 01/17/2019 PROCEDURE: HISTORICAL CARDIAC CATH; COMMENT: Severe muscogee CAD- med management APPENDECTOMY 1973 PROCEDURE: HISTORICAL APPENDECTOMY TONSILLECTOMY 1972 PROCEDURE: HISTORICAL TONSILLECTOMY Medical History Medical History Date Comments Prediabetes 12/07/2019 DX:Prediabetes CAD (coronary artery disease) 12/07/2019 DX :CAD (coronary artery disease); COMMENT: Triple bypass Hypertension 12/07/2019 DX:Hypertension Hyperlipidemia 12/07/2019 DX:Hyperlipidemi a Asthma 12/07/2019 DX:Asthma Depression 12/07/2019 DX:Depression RUMA (obstructive sleep apnea) 12/07/2019 DX :RUMA (obstructive sleep apnea); COMMENT: CPAP Chronic CHF (congestive hear t failure) ([facility] V24, [facility] V28) 12/07/2019 DX:Chronic CHF (congestive heart failure) ([facility]) GERD (gastroesophageal reflux disease) 0 DX:GERD (gastroesophageal reflux disease); COMMENT: H/o stomach ulcer COPD (chronic obstructive pu lmonary disease) ([facility] V24, [facility] V28) 12/22/2019 DX:COPD (chronic o bstructive pulmonary disease) ([facility]) Memory changes DX:Memory change s Anxiety disorder DX:Anxiety diso rder Leg weakness DX:Leg weakness Family History Medical History Relation Name Comments Coronary artery disease Brother Sten t Diabetes Father Diabetes Mother Hypertension Coronary artery disease Sister Relation Name Status Comments Brother Father Mother Sister Social History Tobacco Use Types Packs/Day Years Used Date Smoking Tobacco: Never Smokeless Tobacco: Never Tobacco Cessation:Counseling Given: Not Answered Alcohol Use Standard Drinks/Week Comments Yes 0 (1 standard drink = 0.6 oz pur e alcohol) Housing Instability Answer Date Recorde d Are you worried that in the next 2 months you may not have stable housing? Yes 05/06/2024 Food Access & Nutrition Answer Date Rec orded Do you have access to a vari ety of food including fruits and vegetables? Yes 05/06/2024 Access to Healthcare Answer Date Record ed Within the last 3 months, ho w many times did you visit the emergency department for your medical care? 2 05/06/2024 Health Literacy Answer Date Recorded How often do you need to hav e someone help you when you read instructions, pamphlets, or other written material from your doctor or pharmacy? Sometimes 05/06/2024 Caregiver: How often do you need to have someone help you when you read instructions, pamphlets, or other written material from your doctor or pharmacy? Not on file 05/06/2024 Financial Risk Answer Date Recorded How hard is it for you to pa y for the very basics like food, housing, medical care, and air conditioning / heating? Very hard 05/06/2024 Transportation Answer Date Recorded Has the lack of transportati on kept you from meetings, work, or from getting things needed for daily living? Not asked 2024 Has the lack of transportati on kept you from medical appointments or from getting medications? No 05/06/2024 Social Isolation Answer Date Recorded How often do you feel lonely or isolated from those around you? Sometimes 05/06/2024 Food Risk Answer Date Recorded Within the past 12 months we worried whether our food would run out before we got money to buy more. Not asked 025 Within the past 12 months th e food we bought just didn't last and we didn't have money to get more. Patient declined 08/2024 Dependent Care Answer Date Recorded Do you need help finding or paying for care for your loved ones. For example, early childhood education coordinator or elderly care for an older adult? No 05/06/2024 Education Answer Date Recorded Do you think completing more education or training, like finishing a GED, going to college, or learning a trade, would be helpful for you? Patient declined 05/06/2024 Employment and Income Answer Date Recor ded During the last four weeks, have you been actively looking for work? No 05/06/2024 Living Situation Answer Date Recorded What is your living situation? 0 05/06/2024 Sex and Gender Information Value Date Recorded Sex Assigned at Male 04/18/2024 12:28 PM EST Legal Sex Male 1:10 PM EST Gender Identity Male 04/18/2024 12:28 PM EST Sexual Orientation Choose not to disclose 2024 12:28 PM EST Obstetrics History Last Filed Vital Signs Vital Sign Reading Time Taken Comments Blood Pressure 120/58 05/07/2024 8:25 AM EST Pulse 76 05/07/2024 8:25 AM EST Temperature 36.6 ??C (97.9 ??F) 05/07/2024 8:25 AM ES T Respiratory Rate 21 04/18/2024 12:04 PM EST Oxygen Saturation 98% 05/07/2024 8:25 AM EST Inhaled Oxygen Concentration - - Weight 100 kg (221 lb 3.2 oz) 05/07/2024 8:25 AM EST Height 185.4 cm (6' 1 ) 04/07/2024 12:59 PM EST Body Mass Index 29.18 04/07/2024 12:59 PM EST Plan of Treatment Upcoming Encounters Date Type Department Care Team (Late st Contact Info) Description 07/14/2024 2:00 PM EDT Consult [facility] [address] [place] [address] Yoni Nixon MD [address] [facility] [address] [place] [address] Health Maintenance Due Date Last Done Comments Diabetes: Annual Foot Exam 1972 Diabetes: Annual Retina Eye Exam 1972 DTaP,Tdap,and Td Vaccines (1 - Tdap) 1981 Pneumococcal Vaccine: 50+ Years (1 of 2 - PCV) 1981 Pneumococcal Vaccine: Pediatrics (0 to 5 Years) and At-Risk Patients (6 to 64 Years) (1 of 2 - PCV) 1981 HIV Screening 02/09/2022 Hepatitis C Screening 02/09/2022 Medicare Annual Wellness Visit 02/09/2022 Diabetes: Annual Urine Albumin-Creatinine Ratio (uACR) 02/16/2022 02/04/2020 RSV Immunization Adult Patients (1 - Risk 60-74 years 1-dose series) 2022 Diabetes: Blood Sugar Contro l Test (HGBA1C) 10/17/2022 04/19/2022 COVID-19 Vaccine ( - 2023-2 5 season) 2023 Influenza Vaccine (Season Ended) 2024 01/14/2020 Diabetes: Annual GFR (Glomerular Filtration Rate) 04/18/2025 04/18/2024, 01/12/2024, 04/19/2022 Hypertension/CHF/CAD Annual BMP Blood Test 04/18/2025 04/18/2024, 01/12/2024, 04/19/2022 Depression Screening 05/06/2025 05/06/2024 Social Influencers of Health Screening 05/06/2025 05/06/2024 Cholesterol Screening (Lipid Panel) 01/11/2029 01/12/2024, 04/19/2022 Colorectal Cancer Screening: Colonoscopy 07/18/2030 07/18/2020 Zoster Vaccines Completed 09/10/2022, 06/29/2022 HIB Vaccines Aged Out No longer eligi ble based on patient's age to complete this topic HPV Vaccines Aged Out No longer eligi ble based on patient's age to complete this topic Hepatitis A Vaccines Aged Out No long er eligible based on patient's age to complete this topic Hepatitis B Vaccines Aged Out No long er eligible based on patient's age to complete this topic IPV Vaccines Aged Out No longer eligi ble based on patient's age to complete this topic MMR Vaccines Aged Out No longer eligi ble based on patient's age to complete this topic Meningococcal ACWY Vaccine Aged Out N o longer eligible based on patient's age to complete this topic Meningococcal B Vaccine Aged Out No l onger eligible based on patient's age to complete this topic RSV Immunization Patients Under 20 months Aged Out No longer eligible b ased on patient's age to complete this topic Varicella Vaccines Aged Out No longer eligible based on patient's age to complete this topic Procedures Procedure Name Priority Date/Time Associated Diagnosis Comments CT HEAD WO CONTRAST Routine 05/31/2024 4 :36 PM EDT Acute intractable headache, unspecified headache type Primary hypertension ECG ANNOTATED 04/19/2024 TROPONIN I HIGH SENSITIVITY STAT 04/18/2024 12:49 PM EST XR CHEST 2 VIEWS STAT 04/18/2024 12:14 PM EST [id number], RSV, FLU A AND B QUALITATIVE RT-PCR, INTERNAL LAB STAT 04/18/2024 12:07 PM EST CBC WITH AUTO DIFFERENTIAL STAT 04/18/2024 11:42 AM EST BASIC METABOLIC PANEL STAT 04/18/2024 11:42 AM EST CBC AND DIFFERENTIAL STAT 04/18/2024 11:42 AM EST ECG 12-LEAD STAT 04/18/2024 11:37 AM EST LIPID PANEL Routine 01/12/2024 12:21 PM EST Pure hypercholesterolemia HEMOGLOBIN A1C Routine 04/19/2022 HM COLONOSCOPY Routine 07/18/2020 HM URINE ALBUMIN CREATININE RATIO Routine 02/04/2020 from Last 3 Months or Most Recently Relevant to Health Maintenance Results * CT Head wo Contrast (05/31/2024 4:36 PM EDT) Anatomical Region Laterality Modality Head and Neck Computed Tomogra phy 06/01/2024 1:54 PM EDT Impressions 06/01/2024 2:21 PM EDT No acute intracranial findings. -------- FINAL REPORT -------- Dictated By: Albert Bueno Dictated Date: 06/01/2024 13:54 ET Assigned Physician: Albert Bueno Reviewed and Electronically Signed By: Albert Bueno Signed Date: 06/01/2024 14:21 ET Workstation ID: [id number] Transcribed By: Self Edit Transcribed Date: 06/01/2024 13:54 ET Narrative 06/01/2024 2:21 PM EDT PROCEDURE: Noncontrast head CT. HISTORY: Headache, classic migraine. COMPARISON: None. TECHNIQUE: Noncontrast head CT with coronal and sagittal reformats. Dose length product: 1070 mGy-cm. FINDINGS: BRAIN: No hemorrhage, edema, mass, or extra-axial fluid collection. ??No CT evidence of an acute large vessel infarct. ??Ventricles and sulci are age commensurate. ORBITS: Normal. SINUSES/MASTOIDS: Moderate mucous retention cyst in the rightward sphenoid sinus. ??Right anterior clinoid is pneumatized and communicates with the sphenoid sinus. CALVARIUM: Normal. OTHER: The skull base soft tissues are normal. Procedure Note Albert Bueno MD - 06/01/2024 PROCEDURE: Noncontrast head CT. HISTORY: Headache, classic migraine. COMPARISON: None. TECHNIQUE: Noncontrast head CT with coronal and sagittal reformats. Dose length product: 1070 mGy-cm. FINDINGS: BRAIN: No hemorrhage, edema, mass, or extra-axial fluid collection. No CTevidence of an acute large vessel infarct. Ventricles and sulci are agecommensurate. ORBITS: Normal. SINUSES/MASTOIDS: Moderate mucous retention cyst in the rightward sphenoidsinus. Right anterior clinoid is pneumatized and communicates with thesphenoid sinus. CALVARIUM: Normal. OTHER: The skull base soft tissues are normal. IMPRESSION: No acute intracranial findings. -------- FINAL REPORT -------- Dictated By: Albert Bueno Dictated Date: 06/01/2024 13:54 ET Assigned Physician: Albert Bueno Reviewed and Electronically Signed By: Albert Bueno Signed Date: 06/01/2024 14:21 ET Workstation ID: [id number] Transcribed By: Self Edit Transcribed Date: 06/01/2024 13:54 ET Phill Meyer MD IMG CT PROCEDURES Final Result * ECG-Annotated (04/19/2024) Provider Onbase ECG ORDERABLES Final Result * Troponin I high sensitivity (04/18/2024 12:49 PM EST) High Sensitivity Troponin I 8 <=79 ng/L LAB CHEMISTRY METHOD 04/18/2024 1:25 PM EST [facility] Blood Venous blood specimen / Unknown Venipuncture / Unknown 04/18/2024 12:49 PM EST 04/18/2024 12:59 PM EST Narrative [facility] - 04/18/2024 1:25 PM EST High levels of biotin in samples may falsely decrease hsTroponin values. ??Use caution when interpreting hsTroponin results in patients taking biotin who exhibit renal impairment (eGFR <60) or in patients taking more than 20 mg/day of biotin. Latonia MCNEILL LAB BLOOD ORDERABLES Final Re sult [facility] [address] [place] [address], [place] [phone] * XR Chest 2 Views (04/18/2024 12:14 PM EST) Anatomical Region Laterality Modality Body Radiographic Kira ging 04/18/2024 12:3 4 PM EST Impressions 04/18/2024 12:35 PM EST FINDINGS/IMPRESSION: No significant change compared to prior examination. Hypoventilatory examination with atelectasis/scarring at the left base. ??Stable postoperative mediastinum. ??No congestive heart failure. -------- FINAL REPORT -------- Dictated By: Julee Christian Dictated Date: 04/18/2024 12:34 ET Assigned Physician: Julee Christian Reviewed and Electronically Signed By: Julee Christian Signed Date: 04/18/2024 12:35 ET Workstation ID: [id number] Transcribed By: Self Edit Transcribed Date: 04/18/2024 12:34 ET Narrative 04/18/2024 12:35 PM EST XR CHEST 2 VIEWS INDICATION: dyspnea TECHNIQUE: XR CHEST 2 VIEWS COMPARISON: 09/10/2023 Procedure Note Julee Christian MD - 04/18/2024 XR CHEST 2 VIEWS INDICATION: dyspnea TECHNIQUE: XR CHEST 2 VIEWS COMPARISON: 09/10/2023 IMPRESSION: FINDINGS/IMPRESSION: No significant change compared to priorexamination. Hypoventilatory examination with atelectasis/scarring at the left base.Stable postoperative mediastinum. No congestive heart failure. -------- FINAL REPORT -------- Dictated By: Julee Christian Dictated Date: 04/18/2024 12:34 ET Assigned Physician: Julee Christian Reviewed and Electronically Signed By: Julee Christian Signed Date: 04/18/2024 12:35 ET Workstation ID: [id number] Transcribed By: Self Edit Transcribed Date: 04/18/2024 12:34 ET us Jae Madsen MD IMG XR PROCEDURES Final Res ult * (ABNORMAL) [id number], RSV, Influenza A and B qualitative RT-PCR (04/18/2024 12:07 PM EST) Influenza A PCR Detected(A) Not Detected LAB MICROBIOLOGY METHOD 04/18/2024 1:00 PM EST [facility] Comment:This patient is posi tive for influenza A. If the patient is admitted, please order the Respiratory Virus Panel PCR ([facility] ) so our lab can subtype the influenza A, per CDC recommendations. Influenza B PCR Not Detected Not Detected LAB MICROBIOLOGY METHOD 04/18/2024 1:00 PM EST [facility] RSV PCR Not Detected Not Detected LAB MICROBIOLOGY METHOD 04/18/2024 1:00 PM EST [facility] SARS COV-2 Not Detected Not Detected LAB MICROBIOLOGY METHOD 04/18/2024 1:00 PM EST [facility] Swab Nasopharyngeal structure / Unknown Non-blood Collection / Unknown 04/18/2024 12:07 PM EST 04/18/2024 12:15 PM EST Narrative [facility] - 04/18/2024 1:00 PM EST Disclaimer: ??Testing was performed using the [employer] GeneXpert Xpress SARS-CoV-2 _Flu_RSV PLUS PCR assay. ??The manner in which this information is used to guide patient care is the responsibility of the healthcare provider. ??Results should be correlated with the clinical history, epidemiological data, and other data available to the clinician evaluating the patient. ??Negative results do not preclude infection. ??This test has been authorized by the FDA under an Emergency Use Authorization (EUA). ??This test is only authorized for the duration of time the declaration that circumstances exist justifying the authorization of the emergency use of in vitro diagnostic tests for detection of SARS-CoV-2 virus and/or diagnosis of COVID-19 infection under section 564 (b) (1) of the Act, 21 U.S.C 360bbb-3 (b) (1), unless the authorization is terminated or revoked sooner. ?? Reference Range: Not Detected Fact sheet for Healthcare providers can be found at https://www.fda.gov/media/546650/download. ?? Fact sheet for Healthcare patients can be found at https://www.fda.gov/media/496215/download. Jae Madsen MD LAB MICROBIOLOGY - GENERAL ORDERABLES Final Result [facility] [address] [place] [address], * (ABNORMAL) CBC auto differential (04/18/2024 11:42 AM EST) WBC 8.7 4.8 - 10.8 K/[facility] LAB HEMETOLOGY METHOD 04/18/2024 11:58 AM EST [facility] RBC 5.30 4.50 - 5.50 M/[facility] LAB HEMETOLOGY METHOD 04/18/2024 11:58 AM [facility] Hemoglobin 16.3 13.5 - 17.5 g/dL LAB HEMETOLOGY METHOD 04/18/2024 11:58 AM [facility] Hematocrit 48.3 42.0 - 54.0 % LAB HEMETOLOGY METHOD 04/18/2024 11:58 AM [facility] MCV 90.8 79.0 - 98.0 FL LAB HEMETOLOGY METHOD 04/18/2024 11:58 AM [facility] MCH 30.6 27.0 - 32.0 pcg LAB HEMETOLOGY METHOD 04/18/2024 11:58 AM [facility] MCHC 33.7 32.0 - 37.0 g/dL LAB HEMETOLOGY METHOD 04/18/2024 11:58 AM [facility] RDW 12.0 11.0 - 15.0 % LAB HEMETOLOGY METHOD 04/18/2024 11:58 AM [facility] Platelets 162 130 - 400 K/mcL LAB HEMETOLOGY METHOD 04/18/2024 11:58 AM [facility] MPV 10.4 7.0 - 11.0 FL LAB HEMETOLOGY METHOD 04/18/2024 11:58 AM [facility] NRBC 0.0 <1.0 % LAB HEMETOLOGY METHOD 04/18/2024 11:58 AM [facility] NRBC Absolute 0.00 <0.10 K/mcL LAB HEMETOLOGY METHOD 04/18/2024 11:58 AM [facility] Neutrophils Relative 74.5 % LAB HEMETOLOGY METHOD 04/18/2024 11:58 AM [facility] Lymphocytes Relative 8.5 % LAB HEMETOLOGY METHOD 04/18/2024 11:58 AM [facility] Monocytes Relative 14.2 % LAB HEMETOLOGY METHOD 04/18/2024 11:58 AM [facility] Eosinophils Relative 1.0 % LAB HEMETOLOGY METHOD 04/18/2024 11:58 AM [facility] Basophils Relative 0.5 % LAB HEMETOLOGY METHOD 04/18/2024 11:58 AM [facility] Immature Granulocytes Relative 1.3 % LAB HEMETOLOGY METHOD 04/18/2024 11:58 AM [facility] Neutrophils Absolute 6.47 1.50 - 7.00 K/mcL LAB HEMETOLOGY METHOD 04/18/2024 11:58 AM [facility] Lymphocytes Absolute 0.74(L) 1.00 - 5.00 K/mcL LAB HEMETOLOGY METHOD 04/18/2024 11:58 AM [facility] Monocytes Absolute 1.23(H) 0.20 - 1.00 K/mcL LAB HEMETOLOGY METHOD 04/18/2024 11:58 AM [facility] Eosinophils Absolute 0.09 0.00 - 0.50 K/mcL LAB HEMETOLOGY METHOD 04/18/2024 11:58 AM [facility] Basophils Absolute 0.04 0.00 - 0.20 K/mcL LAB HEMETOLOGY METHOD 04/18/2024 11:58 AM [facility] Immature Granulocytes Absolute 0.11(H) 0.00 - 0.03 K/mcL LAB HEMETOLOGY METHOD 04/18/2024 11:58 AM [facility] Blood Venous blood specimen / Unknown Venipuncture / Unknown 04/18/2024 11:42 AM EST 04/18/2024 11:49 AM EST us Jae Madsen MD LAB BLOOD ORDERABLES Final Result [facility] [address] [place] [address], * (ABNORMAL) Basic metabolic panel (04/18/2024 11:42 AM EST) Sodium 138 133 - 145 mmol/L LAB CHEMISTRY METHOD 04/18/2024 12:14 PM [facility] Potassium 4.0 3.5 - 5.5 mmol/L LAB CHEMISTRY METHOD 04/18/2024 12:14 PM [facility] Chloride 107 96 - 110 mmol/L LAB CHEMISTRY METHOD 04/18/2024 12:14 PM [facility] CO2 27 21 - 32 mmol/L LAB CHEMISTRY METHOD 04/18/2024 12:14 PM [facility] Anion Gap 4 3 - 11 LAB CHEMISTRY METHOD 04/18/2024 12:14 PM [facility] Glucose 290(H) 70 - 100 mg/dL LAB CHEMISTRY METHOD 04/18/2024 12:14 PM [facility] BUN 20 5 - 25 mg/dL LAB CHEMISTRY METHOD 04/18/2024 12:14 PM [facility] Creatinine 1.29 0.70 - 1.30 mg/dL LAB CHEMISTRY METHOD 04/18/2024 12:14 PM [facility] eGFR 63 >=60 mL/min/1. 73m2 LAB CHEMISTRY METHOD 04/18/2024 12:14 PM [facility] Comment:Calculation based on the??Chronic Kidney Disease Epidemiology Collaboration (CKD-EPI) equation refit??without adjustment for race. BUN/Creatinine Ratio 15.5 LAB CHEMISTRY METHOD 04/18/2024 12:14 PM [facility] Calcium 8.8 8.5 - 10.5 mg/dL LAB CHEMISTRY METHOD 04/18/2024 12:14 PM [facility] Blood Venous blood specimen / Unknown Venipuncture / Unknown 04/18/2024 11:42 AM EST 04/18/2024 11:49 AM EST Jae Madsen MD LAB BLOOD ORDERABLES Final Result [facility] [address] [place] [address], * ECG 12 lead (04/18/2024 11:37 AM EST) Ventricular Rate ECG 91 BPM GEMUSE Atrial Rate 91 BPM GEMUSE P-R Interval 132 ms GEMUSE QRS Duration 86 ms GEMUSE Q-T Interval 358 ms GEMUSE QTc 440 ms GEMUSE P Wave Osprey 55 degrees GEMUSE R Osprey 27 degrees GEMUSE T Osprey 26 degrees GEMUSE ECG Interpretation Normal sinus rhythm Possible Inferior infarct (cited on or before 10-SEP-2023) Abnormal ECG When compared with ECG of 10-SEP-2023 12:56, Nonspecific T wave abnormality no longer evident in Lateral leads Confirmed by JAYRO ROSALES ([id number]) on 04/18/2024 6:24:19 PM GEMUSE 04/18/2024 11:3 7 AM EST 04/18/2024 6:24 PM EST Jae Madesn MD ECG ORDERABLES Final Resul t GEMUSE * (ABNORMAL) Lipid panel (01/12/2024 12:21 PM EST) Cholesterol Total 198 100 - 199 mg/dL [facility] Triglycerides 124 0 - 149 mg/dL [facility] HDL Cholesterol 45 >39 mg/dL [facility] VLDL Cholesterol Calculated 22 5 - 40 mg/dL [facility] LDL Chol Calc ([facility]) 131(H) 0 - 99 mg/dL [facility] Blood Venous blood specimen / Unknown 01/12/2024 12:21 PM EST 01/12/2024 Narrative [facility] - 01/13/2024 3:06 AM EST Performed at: ??01 - [facility] [address] ??[id number] Chain Sales Consultant: Deepa Peacock MD, Phone: ??[phone] Barber Poole MD LAB BLOOD ORDERABLES F inal Result [facility] * Hemoglobin A1c (04/19/2022) Pathologist [facility] Hemoglobin A1C 6.5 <=6.5 % Blood Venous blood specimen / Unknown Historical Provider LAB BLOOD ORDERABLES Ni l Result * Colonoscopy (07/18/2020) Pathologist [facility] Colonoscopy normal, abstracted Anatomical Region Laterality Modality Other Result [facility] Historical Provider HEALTH MAINTENANCE Final Result * Urine Albumin Creatinine Ratio (02/04/2020) Pathologist [facility] Urine Albumin Creatinine Ratio abstracted Historical Provider HEALTH MAINTENANCE Final Result from Last 3 Months or Most Recently Relevant to Health Maintenance Insurance [facility] MEDIC[facility] Member Subscriber Plan / Payer (Ef fective 2023-Present) Name:Heraclio Ramon Relation to Subscriber:Self Name:Heraclio Ramon Payer ID:[id number] Group ID:[id number] Type:Not on file Address: [place] [place] [address] Care Teams Coater Relationship Specialty Start Date End Date Phill Meyer MD [address] [address] PCP - General Internal Medicine 04/07/24
--- OUTSIDE RECORDS SUMMARY | 2024-06-16 16:38 | XMS_ITS | Patient Health Record ---
Author Organization [facility] Address [address] [place] [address] Care Team Providers Care Credit Charge Authorizer Name Role Phone Aly Adhikari, * Prabhjot Primary Care Provider Niranjan Grace Unavailable [phone] Migration, Provider Unavailable Unavailable Allergies Allergen (clinical drug ingredient) Drug/Non Drug Allergy documented on EMR Reaction Allergy Type Onset Date Status SHELL FISH. (uncoded) Unknown Allergy Active Reason For Referral No Information Medications Medication SIG (Take, Route, Frequency, Duration) [...] a day for 90 days 01/22/2017 Active Social History Tobacco Use: Social History Observation Description Date Details (start date - stop date) Never Smoker NA - NA Tobacco Use Question Answer Notes Are you a: never smoker Problems Problem Type SNOMED Code ICD Code Onset Dates Problem Status W/U Status Risk Notes Problem Dysphagia (04765378) Dysphagia (438.82) Active confirmed Problem Epigastric pain (87363066) Epigastric pain (R10.13) Active confirmed Problem Gastro-esophagea l reflux disease without esophagitis (458115969) Gastro-esophage al reflux disease without esophagitis (K21.9) Active confirmed Problem Screening for malignant neoplasm of colon (329108070) Encounter for screening for malignant neoplasm of colon (Z12.11) Active confirmed Problem Epigastric pain (77369019) Epigastric pain (R10.13) Active confirmed Problem Dysphagia (53110274) Dysphagia, unspecified (R13.10) Active confirmed Encounters Encounter Location Date Provider Diagnosis [facility] [address] [place] [address] 11/22/2023 Provider Migration Gastro-esophageal reflux disease without esophagitis K21.9 and Encounter for screening for malignant neoplasm of colon Z12.11 Assessments Encounter Date Diagnosis (ICD Code) Assessment Notes Treatment Notes Treatment Clinical Notes Section Notes 11/22/2023 Gastro-esophagea l reflux disease without esophagitis (ICD-10 - K21.9) 11/22/2023 Encounter for screening for malignant neoplasm of colon (ICD-10 - Z12.11) Plan Of Treatment Pending Test Test Name Order Date Barium swallow with pill 12/19/2012 COLONOSCOPY at [facility] 12/19/2012 COLONOSCOPY at [facility] 01/22/2017 EGD at [facility] 12/19/2012 EGD at [facility] 12[facility]05/2012 EGD at [facility] 01/22/2017 EGD @ [facility] 09/25/2016 Insurance Providers Payer Name Payer Address Payer Phone Subscriber Number Group Number Insured Name Patient Relationship to Insured Coverage Start Date Coverage End Date [employer] [address] [facility] [place] [id number] ELIZABETH MENENDEZ Self - patient is the insured Medical (General) History Medical History History ICD Code CHEST PAIN HIGH BLOOD PRESSURE sleep apne neck pain back pain Hospitalization History Reason Date(Month/Year) CHEST PAIN 2015
== END 2024-06-16 15:03 | disposition home or self-care (01) ==
LOC: HO.HSMS 13:55
PROVIDERS: PCP Internal Medicine; Visit Provider Nurse Practitioner Family
DX: G47.33 Obstructive sleep apnea (adult) (pediatric) (principal); R41.89 Other symptoms and signs involving cognitive functions and awareness; G47.21 Circadian rhythm sleep disorder, delayed sleep phase type
CPT/HCPCS: 99214

== ENCOUNTER → 2024-06-16 13:54 | Outpatient (BNVA) | payer OTHER, SELFPAY | PROVIDERS: PCP Internal Medicine; Visit Provider Nurse Practitioner Family | DX: G47.33 Obstructive sleep apnea (adult) (pediatric) (principal); G47.21 Circadian rhythm sleep disorder, delayed sleep phase type; F09 Unspecified mental disorder due to known physiological condition; Z99.89 Dependence on other enabling machines and devices | CPT/HCPCS: 99212 ==

== ENCOUNTER → 2024-07-18 20:30 | Outpatient (REF) | payer OTHER, SELFPAY ==
--- OUTSIDE RECORDS SUMMARY | 2024-07-18 21:05 | XMS_ITS | Patient Health Record ---
Author Organization [facility] Address [address] [place] [address] Care Team Providers Care Shift Superintendent Caustic Cresylate Name Role Phone Aly Adhikari, * Prabhjot Primary Care Provider Niranjan Grace Unavailable [phone] Migration, Provider Unavailable Unavailable Allergies Allergen (clinical [...] Status W/U Status Risk Notes Problem Dysphagia (56740862) Dysphagia (438.82) Active confirmed Problem Epigastric pain (36410034) Epigastric pain (R10.13) Active confirmed Problem Gastro-esophagea l reflux disease without esophagitis (438162474) Gastro-esophage al reflux disease without esophagitis (K21.9) Active confirmed Problem Screening for malignant neoplasm of colon (368419101) Encounter for screening for malignant neoplasm of colon (Z12.11) Active confirmed Problem Epigastric pain (81091024) Epigastric pain (R10.13) Active confirmed Problem Dysphagia (38785104) Dysphagia, unspecified (R13.10) Active confirmed Encounters Encounter Location Date Provider Diagnosis [facility] [address] [place] [address] 11/22/2023 Provider Migration Gastro-esophageal reflux disease without [...] Barium swallow with pill 12/19/2012 COLONOSCOPY at [facility] 01/22/2017 COLONOSCOPY at [facility] 12/19/2012 EGD at [facility] 01/22/2017 EGD at [facility] 12/19/2012 EGD at [facility] 12/05/2012 EGD @ [facility] 09/25/2016 Insurance Providers Payer Name Payer Address Payer Phone Subscriber Number Group Number Insured Name Patient Relationship to Insured Coverage Start Date Coverage End Date [employer] [address] [facility] [place] [id number] [phone] [id number] ELIZABETH MENENDEZ Self - patient is the insured Medical (General) History Medical History History ICD Code CHEST PAIN HIGH BLOOD PRESSURE sleep apne neck pain back pain Hospitalization History Reason Date(Month/Year) CHEST PAIN 2015
--- OUTSIDE RECORDS SUMMARY | 2024-07-18 21:05 | XMS_ITS | Encounter Summary ---
Author Organization [facility] Address [address] [place] [address] Phone Care Team Providers Care Fur Sewer Name Role Phone Phill Meyer MD Primary Care Provider Encounter Details Date Type Department Care Team (Late st Contact Info) Description 12/31/2022 Documentation Only [facility] [place], [address] [place] [phone] Phill Meyer MD [address] [place] [phone] Social History Tobacco Use Types Packs/Day Years [...] on filedocumented in this encounter Care Teams Fur Sewer Relationship Specialty Start Date End Date Phill Meyer MD [address] [place] [address] PCP - General Internal Medicine 12/31/22 documented as of this encounter
--- OUTSIDE RECORDS SUMMARY | 2024-07-18 21:05 | XMS_ITS | Encounter Summary ---
Author Organization [facility] Address [address] [place] [address] Phone Care Team Providers Care Group Tester Name Role Phone Phill Meyer MD Primary Care Provider [phone] Encounter Details Date Type Department Care Team (Late st Contact Info) Description 12/31/2022 Documentation Only [facility] [place], [address] [place] [phone] Phill Meyer MD [address] [place] [phone] Social History Tobacco Use Types Packs/Day Years [...] on filedocumented in this encounter Care Teams Group Tester Relationship Specialty Start Date End Date Phill Meyer MD [address] [place] [phone] PCP - General Internal Medicine 12/31/22 documented as of this encounter
--- OUTSIDE RECORDS SUMMARY | 2024-07-18 21:05 | XMS_ITS | Encounter Summary ---
Author Organization [facility] Address [address] [place] [address] Phone Care Team Providers Care Aircraft Machinist Helper Name Role Phone Phill Meyer MD Primary Care Provider [phone] Encounter Details Date Type Department Care Team (Late st Contact Info) Description 12/31/2022 Documentation Only [facility] [place], [address] [place] [phone] Phill Meyer MD [address] [place] [address] Social History Tobacco Use Types Packs/Day Years [...] on filedocumented in this encounter Care Teams Aircraft Machinist Helper Relationship Specialty Start Date End Date Phill Meyer MD [address] [place] [phone] PCP - General Internal Medicine 12/31/22 documented as of this encounter
--- OUTSIDE RECORDS SUMMARY | 2024-07-18 21:06 | XMS_ITS | Data Portability ---
Author Organization [place] - [facility], Allergy Address [address] [address] Care Team Providers [facility] Chief Executive Officer Name Role Phone LIZETTE TRINIDAD Primary Care Provider [phone] Assessment Encounter Date Assessment Date Assessment LastModified by Organization Details LastModified Time 04/09/2024 04/09/2024 Nasal examination today did identify a prominent bleeding source right anterior septum to explain their history of epistaxis. Patient not interested in nasal cautery today. He admits to frequent aggressive nose blowing, and we discussed this is likely the underlying issue. Recommend trialing medical management with saline nasal spray 3 times daily, K-Y jelly at night, Afrin with episodes of bleeding and packing the nose with Bleed Cease (available OTC) if any additional bleeding. May use Ponaris Nasal Emollient 1/2 dropper twice daily as needed with dryness. If taking antiplatelet or anticoagulant therapy discuss holding with prescribing provider, if epistaxis becomes more bothersome. Return to office as needed or go to emergency room if severe episodes. jae Not available 04/09/2024 17:20:27 05/26/2024 05/26/2024 Patient with a history of coronary disease on aspirin seen in follow-up for epistaxis. Unfortunately he got the flu in April and was hospitalized. However, since that time he has been doing well and has had not had any further bouts of epistaxis. He has been using some nasal inhaler to open up his nasal passages.Examina tion does show septal deviation to the right side but no polyps. Nasal pharyngoscopy is limited. Suggest saline solution 4 times daily, K-Y jelly in the nose at night and avoidance of any decongestant preparations. He will contact me if he has persistent obstruction and we can consider imaging [email or web address] Not available 05/26/2024 15:06:52 Plan of Treatment Reminders Order Date Submit Date Provider Last Modified By Organization Details Last Modified Time Details Appointments None recorded. Lab None recorded. Referral None recorded. Procedures None recorded. Surgeries None recorded. Imaging None recorded. Medication Orders Saline Mist 0.65 % nasal spray aerosol 025 [id number] [facility] #[id number], [address] [place], [address], 14:43:04 Patient TargetsNo targets recorded. Patient Instructions Encounter Date Encounter Id Patient Instructions Last Modified By Organization Details Last Modified Time 05/26/2024 [id number] nosebleed information [email or web address] Not available 05/26/2024 15:07:39 Reason for Referral None Reported. Problems Name Problem SNOMED Code Status Onset Date Resolution Date Notes Provider Name and Address Organization Details Recorded Time Dizziness and giddiness 156996656 Active 2022 Dizziness and giddiness; Note: Date Diagnosed: 03/26/2022 10:12 AM (R42) Not Available [facility] 4 03:21:26 Sensorine ural hearing loss of bilateral ears 527591539 Active 2022 Sensorineu ral hearing loss, bilateral; Note: Date Diagnosed: 03/26/2022 10:12 AM (H90.3) Not Available [facility] 4 03:21:26 Vasomotor rhinitis 5034040 Active 2022 Vasomotor rhinitis; Note: Date Diagnosed: 03/26/2022 10:45 AM (J30.0) Not Available [facility] 4 03:21:26 Chronic sinusitis 60378765 Active 2020 Other chronic sinusitis; Note: Date Diagnosed: 11/20/2020 11:53 AM (J32.8) Not Available [facility] 4 03:21:27 Dyspnea 691371898 Active 2020 Shortness of breath; Note: Date Diagnosed: 11/20/2020 11:53 AM (R06.02) Not Available [facility] 4 03:21:26 Anterior epistaxis 704402664 Active 2024 ENDY KEYES PA-C [address], [place], [address] , [facility] - [facility] 5 13:32:35 Bleeding from nose 101863704 Active 2024 NERY GROSSMAN MD [address], [place], [address] , [facility] - [facility] [place] 5 15:07:04 Deviated nasal septum 326779108 Active 2024 NERY GROSSMAN MD [address], [place], [place], [address] , [facility] - [facility] [place] 5 15:07:12 Obstructi ve sleep apnea syndrome 19647085 Active 2024 NERY GROSSMAN MD [address], [place], [place], [address] , [facility] - [facility] 15:07:16 Problem Notes None recorded. Procedures Surgical History Date Name Laterality Status Provider Name and Address Organization Details Recorded Time JMSNasal/Sinus Endoscopy completed NERY PATE MD [address], [place], [address], [facility] 05/26/2024 15:08:11 Imaging Results None recorded. Procedure Notes None recorded. Medical Equipment None Reported. Allergies Allergen ID Allergen Name Allergen Category Reaction Reaction Severity Criticality Documentation Date Start Date Code Code System Note Provider Name and Address Organization Details Recorded Time 854761 doxycycli ne Not available other Not available Not available 07/15/2023 3640 RxNorm React ion: other react ion, Unkno wn; Not Available [facility] 01:23[facility]15 Medications Name Sig Start Date Stop Date Status Note LastModified by Organization Details LastModified Time furosemid e 40 mg tablet TAKE 1 TABLET BY MOUTH DAILY DIRECTED 05/26 completed Not Available Not Available Not Available doxycycli ne hyclate 100 mg capsule by mouth 01/29 completed Medicati on ID: [id number] D uration Value: 14 Brand Name: doxycycl ine hyclate Send Method: E-Prescr ibed Sub s Allowed: subs SHALINI sherwood Instruct ion: Take 1 PO BID X 21 days Med Logan Miller me: doxycycl ine hyclate Not Available Not Available Not Available azithromy vanessa 250 mg tablet TAKE 2 TABLETS BY MOUTH TODAY, THEN TAKE 1 TABLET DAILY FOR 4 DAYS DIRECTED 05/26 completed Not Available Not Available Not Available ibuprofen 800 mg tablet TAKE 1 TABLET BY MOUTH THREE TIMES A DAY FOR 30 DAYS active Not Available Not Available No t Available benzonata te 200 mg capsule TAKE 1 CAPSULE BY MOUTH THREE TIMES A DAY NEEDED FOR COUGH 05/26 completed Not Available Not Available Not Available prednison e 20 mg tablet TAKE 3 TABS BY MOUTH ONCE DAILY FOR 3 DAYS, 2 TABS FOR 3 DAYS, 1 TAB FOR 3 DAYS 05/26 completed Not Available Not Available Not Available prednison e 5 mg tablet PLEASE SEE ATTACHED FOR DETAILED DIRECTIO NS 05/26 completed Not Available Not Available Not Available alclometa sone 0.05 % topical cream APPLY TO GLANS OF PENIS TWICE A DAY NEEDED FLARES, DECREASE SYMPTOMS IMPROVE 05/26 completed Not Available Not Available Not Available sumatript an 50 mg tablet PLEASE SEE ATTACHED FOR DETAILED DIRECTIO NS 05/26 completed Not Available Not Available Not Available amlodipin e 2.5 mg tablet 05/26 completed Medicati on ID: [id number] B rand Name: amlodipi ne Send Method: E-Prescr ibed Sub s Allowed: subs SHALINI sherwood Instruct ion: TAKE 1 TABLET BY MOUTH EVERY DAY Medi cationGe nericNam e: amlodipi ne Not Available Not Available Not Available amlodipin e 5 mg tablet TAKE 1 TABLET BY MOUTH EVERY DAY active Not Available Not Available No t Available famotidin e 20 mg tablet TAKE 1 TABLET BY MOUTH TWICE A DAY active Not Available Not Available No t Available amitripty line 25 mg tablet TAKE 1 TABLET BY MOUTH EVERYDAY AT BEDTIME active Not Available Not Available No t Available amitripty line 10 mg tablet TAKE 1 TO 2 TABLETS BY MOUTH AT BEDTIME 05/26 completed Not Available Not Available Not Available pantopraz ole 40 mg tablet,de layed release 05/26 completed Medicati on ID: [id number] B rand Name: pantopra zole Sen d Method: E-Prescr ibed Sub s Allowed: subs OK Speci al Instruct ion: TAKE 1 TABLET BY MOUTH EVERY DAY Medi cationGe nericNam e: pantopra zole Not Available Not Available Not Available tacrolimu s 0.1 % topical ointment APPLY TO PENIS TWICE A DAY NEEDED FOR FLARES active Not Available Not Available No t Available oseltamiv ir 75 mg capsule TAKE 1 CAPSULE BY MOUTH EVERY 12 HOURS FOR 5 DAYS. 05/26 completed Not Available Not Available Not Available budesonid e 0.5 mg/2 mL suspensio n for nebulizat ion 03/28 completed Medicati on ID: [id number] D uration Value: 30 Prescri bed By Name: Zeynep Bach nd Name: budesoni rena Send Method: E-Prescr ibed Sub s Allowed: subs OK Speci al Instruct ion: use one vial in Neilmed rinse twice daily. 1/2 bottle per nostril. Medicat ionGener icName: budesoni de Not Available Not Available Not Available monteluka st 10 mg tablet TAKE 1 TABLET BY MOUTH EVERY DAY 05/26 completed Not Available Not Available Not Available azelastin e 137 mcg (0.1 %) nasal spray INHALE 2 SPRAYS EACH NOSTRIL TWICE DAILY 05/26 completed Not Available Not Available Not Available epinephri ne 0.3 mg/0.3 mL injection , auto-inje ctor active Not Available Not Available Not Available methylpre dnisolone 4 mg tablets in a dose pack 05/26 completed Not Available Not Available Not Available hydrocort isone 2.5 % topical ointment APPLY TO ANUS TWICE A DAY NEEDED PRURITIS , DECREASE USE SYMPTOMS IMPROVE 05/26 completed Not Available Not Available Not Available losartan 100 mg tablet 05/26 completed Medicati on ID: [id number] B rand Name: losartan Send Method: E-Prescr ibed Sub s Allowed: subs OK Speci al Instruct ion: TAKE 1 TABLET BY MOUTH EVERY DAY Medi cationGe nericNam e: losartan Not Available Not Available Not Available fluticaso ne propionat e 50 mcg/actua tion nasal spray,ana pension INHALE 2 SPRAYS EACH NOSTRIL AT NIGHT 05/26 completed Not Available Not Available Not Available metformin ER 500 mg tablet,ex tended release 24 hr 05/26 completed Medicati on ID: [id number] B rand Name: metformi n Send Method: E-Prescr ibed Sub s Allowed: subs OK Speci al Instruct ion: TAKE 1 TABLET BY MOUTH EVERY DAY IN THE MORNING WITH BREAKFAS T Medica tionGene ricName: metformi n Not Available Not Available Not Available clotrimaz ole 1 % topical cream USE DIRECTED APPLY A PEA-SIZE D AMOUNT TO THE PENILE RASH TWICE A DAY FOR 4 WEEKS 05/26 completed Not Available Not Available Not Available ipratropi um bromide 21 mcg (0.03 %) nasal spray Inhale 2 spray three times a day as directed 05/26 completed Medicati on ID: [id number] B rand Name: ipratrop ium bromide Send Method: E-Prescr ibed Sub s Allowed: subs OK Medic ationGen ericName : ipratrop ium bromide Not Available Not Available Not Available amoxicill in 875 mg-potass ium clavulana te 125 mg tablet TAKE 1 TABLET BY MOUTH TWICE A DAY 05/26 completed Not Available Not Available Not Available valsartan 160 mg tablet TAKE 1 TABLET BY MOUTH EVERY DAY active Not Available Not Available No t Available rosuvasta tin 40 mg tablet TAKE 1 TABLET BY MOUTH EVERY DAY active Not Available Not Available No t Available duloxetin e 30 mg capsule,d elayed release TAKE 1 CAPSULE ORALLY DAILY FOR 30 DAYS 05/26 completed Not Available Not Available Not Available Flovent HFA 110 mcg/actua tion aerosol inhaler 05/26 completed Medicati on ID: [id number] B rand Name: Flovent HFA Send Method: E-Prescr ibed Sub s Allowed: subs OK Speci al Instruct ion: INHALE 1 PUFF INTO LUNGS TWICE DAILY Me dication GenericN adiel: Flovent HFA Not Available Not Available Not Available ProAir HFA 90 mcg/actua tion aerosol inhaler 05/26 completed Medicati on ID: [id number] B rand Name: ProAir HFA Send Method: E-Prescr ibed Sub s Allowed: subs OK Speci al Instruct ion: INHALE 2 PUFFS BY MOUTH IN AM AND PM Medic ationGen ericName : ProAir HFA Not Available Not Available Not Available levocetir izine 5 mg tablet TAKE 1 TABLET BY MOUTH EVERYDAY AT BEDTIME 05/26 completed Not Available Not Available Not Available Trelegy Ellipta 200 mcg-62.5 mcg-25 mcg powder for inhalatio n USE 1 PUFF EVERY MORNING active Not Available Not Available No t Available Vitals Date Recorded Body height Body mass index (BMI) Body weight Provider Name and Address Organization Details Last Updated DateTime 05/26/2024 185.42 cm 29.9 kg/m2 331689.47 g Meseret Manuel [facility] 05/26/2024 14:41:08 Date Recorded Body height Body mass index (BMI) Body weight Provider Name and Address Organization Details Last Updated DateTime 04/09/2024 185.42 cm 31.4 kg/m2 630598.98 g Cherri Painter [facility] 04/09/2024 13:13:12 Social History None recorded. Functional Status None recorded. Mental Status None recorded. Family History Nothing Reported. Medical History Condition Response Heart Problems Y Heart Attack ([place]) Y Asthma Y High Cholesterol Y Past Encounters Encounter ID Performer Location Encounter Start Date Encounter Closed Date Diagnosis/Indication Diagnosis SNOMED-CT Code Diagnosis ICD10 Code Diagnosis Note [id number] ENDY KEYES PA-C [facility] [address] [address] 04/09/2024 13:07:02 04/09/2024 13:35:03 Anterior epistaxis 140629161 R04.0 [id number] NERY GROSSMAN MD [facility] [address] [address] 05/26/2024 14:28:59 05/26/2024 15:10:01 Bleeding from nose 710061539 R04.0 Deviated nasal septum 12 5096091 J34.2 Obstructiv e sleep apnea syndrome 35659759 G47.33 Using CPAP Long-term current use of antiplatelet drug 7900097950 29800 Z79.02 Health Concerns Section Related Observation LastModified by Organization Detai ls LastModified Time None Recorded Concern Status LastModified by Organization Details LastModified Time None Recorded Advance Directives Directive None Recorded Payers Insurance Date Sequence Insurance Name Policy Number Policy Jain Covered Member ID Jain Member ID Guarantor Name 05/19/2024 1 [facility] - DOS ON OR AFTER 2022 - MEDICARE [place]VANTAGE [place]MEDICARE RE[place]ACEMENT/A DVANTAGE - PPO) Heraclio Ramon [id number] Heraclio Ramon Jr 05/25/2024 1 [facility] - DOS ON OR AFTER 2022 - [facility] (MEDICARE REPLACEMENT/A DVANTAGE - HMO) Heraclio Ramon [id number] Heraclio Ramon Jr 02/20/2024 2 [place] [facility] Heraclio Ramon Jr [id number] Heraclio Ramon Jr Notes Date Note Type Note Provider Name and Address Organization Details Recorded Time 04/09/2024 text/html 63yo male on ASA presents for evaluation of right epistaxis. He endorses chronic nasal congestion for 3 years, and started aggressively blowing his nose as a result. 1 year ago his recurrent nosebleeds started. Nosebleeds occur 3-5 times weekly and last minutes. He frequently blows his nose aggressively and this triggers the bleeding. He manages the bleeding by stuffing tissues inside the nose. Patient currently has a cold and endorses worse nasal congestion and rhinorrhea than baseline. No family history of bleeding disorder. He was seen in the past by Dr. Pate and Dr. Clark for sinusits. He was offered FESS, but is still not interested in surgical intervention. GODFREY ACOSTA MD [address] [place] [address], [phone], [facility] - [facility] 04/12/2024 08:01:05 05/26/2024 text/html Patient with a history of coronary disease on aspirin seen in follow-up for epistaxis. Unfortunately he got the flu in April and was hospitalized. However, since that time he has been doing well and has had not had any further bouts of epistaxis. He has been using some nasal inhaler to open up his nasal passages. NERY PATE MD [address] [place] [address], [place], [address], [facility] - [facility] 05/26/2024 15:08:33
--- OUTSIDE RECORDS SUMMARY | 2024-07-18 21:06 | XMS_ITS | Encounter Summary ---
Author Organization [facility] Address [address] [place] [address] Care Team Providers Care Bone Drier Name Role Phone Phill Meyer MD Primary Care Provider [phone] Reason for Visit * Consultation (Urgent) - Authorized Specialty Diagnoses / Procedures Referred By Contac t Referred To Contact Neurology Diagnoses Acute intractable headache, unspecified headache type Primary hypertension Phill Meyer MD 175 [facility] [address] [place] [address] Phone: tel: fax: [facility] [address] [phone] Phone: tel: fax: Referral ID Status Reason Start Date Expiration Date Visits Requested Visits Authorized [id number] Authorized Specialty Services Required 05/07/2024 05/07/2025 1 1 Encounter Details Date Type Department Care Team (Late st Contact Info) Description 07/14/2024 2:00 PM EDT Consult [facility] [address] [phone] Yoni Nixon MD [address] [phone] Acute intractable headache, unspecified headache type; Primary hypertension Social History Tobacco Use Types Packs/Day Years Used Date Smoking Tobacco: Never Smokeless Tobacco: Never Alcohol Use Standard Drinks/Week Comments Yes 0 [...] care for your loved ones. For example, child development specialist or elderly care for an older adult? [...] not to disclose 2024 12:28 PM EST documented as of this encounter Last Filed Vital Signs Vital Sign Reading Time Taken Comments Blood Pressure 151/126 07/14/2024 2:02 PM EDT Pulse 76 07/14/2024 2:02 PM EDT Temperature - - Respiratory Rate - - Oxygen Saturation 99% 07/14/2024 2:02 PM EDT Inhaled Oxygen Concentration - - Weight 109 kg (240 lb) 07/14/2024 2:02 PM EDT Height 185.4 cm (6' 1 ) 07/14/2024 2:02 PM EDT Body Mass Index 31.66 07/14/2024 2:02 PM EDT documented in this encounter Plan of Treatment Upcoming Encounters Date Type Department Care Team (Late st Contact Info) Description 07/21/2024 4:00 PM EDT Office Visit Internal Medicine - [place] 175 [facility] [address] [place] [phone] Phill Meyer MD 175 [facility] [address] [place] [address] 01/17/2025 3:00 PM EST Office Visit [facility] [place] 175 [facility] [address] [place] [phone] Yoni Nixon MD 175 [facility] [address] [place] [phone] documented as of this encounter Results * Borrelia burgdorferi antibody (07/14/2024 2:41 PM EDT) [facility] Lyme Ab Negative Negative LAB CHEMISTRY METHOD 07/15/2024 8:40 AM EDT [facility] Comment: No laboratory evidence of infection with B. burgdorferi (Lyme disease). Negative results may occur in patients recently infected (<=14 days) with B. burgdorferi. ??If recent infection is suspected, repeat testing on a new sample collected in 7-14 days is recommended. Blood Venous blood specimen / Unknown Venipuncture / Unknown 07/14/2024 2:41 PM EDT 07/14/2024 2:41 PM EDT us Yoni Nixon MD LAB BLOOD ORDERABLES Fin al Result Performing Organization Address [facility]/ZIP Co de Phone Number [facility] [address] [place] [address], * BUN (07/14/2024 2:41 PM EDT) BUN 16 5 - 25 mg/dL LAB CHEMISTRY METHOD 07/14/2024 6:41 PM EDT [facility] Blood Venous blood specimen / Unknown Venipuncture / Unknown 07/14/2024 2:41 PM EDT 07/14/2024 2:41 PM EDT us Yoni Nixon MD LAB BLOOD ORDERABLES Fin al Result Performing Organization Address [facility] Co de Phone Number [facility] [address] [place] [address], [place] [phone] * Creatinine (07/14/2024 2:41 PM EDT) Creatinine 1.09 0.70 - 1.30 mg/dL LAB CHEMISTRY METHOD 07/14/2024 6:41 PM EDT [facility] eGFR 77 >=60 mL/min/1. 73m2 LAB CHEMISTRY METHOD 07/14/2024 6:41 PM EDT [facility] Comment:Calculation based on the Chronic Kidney Disease Epidemiology Collaboration (CKD-EPI) equation refit without adjustment for race. Blood Venous blood specimen / Unknown Venipuncture / Unknown 07/14/2024 2:41 PM EDT 07/14/2024 2:41 PM EDT us Yoni Nixon MD LAB BLOOD ORDERABLES Fin al Result [facility] [address] [place] [address], [place] [phone] * Vitamin D 25 hydroxy (07/14/2024 2:41 PM EDT) Vit D, 25-Hydroxy 32.5 30.0 - 80.0 ng/mL LAB CHEMISTRY METHOD 07/14/2024 7:21 PM EDT [facility] Blood Venous blood specimen / Unknown Venipuncture / Unknown 07/14/2024 2:41 PM EDT 07/14/2024 2:41 PM EDT us Yoni Nixon MD LAB BLOOD ORDERABLES Fin al Result Performing Organization Address [facility]/ZIP Co de Phone Number [facility] [address] [place] [address], [place] [phone] * Vitamin B12 (07/14/2024 2:41 PM EDT) Vitamin B-12 469 250 - 900 pcg/mL LAB CHEMISTRY METHOD 07/14/2024 7:05 PM EDT [facility] Blood Venous blood specimen / Unknown Venipuncture / Unknown 07/14/2024 2:41 PM EDT 07/14/2024 2:41 PM EDT us Yoni Nixon MD LAB BLOOD ORDERABLES Fin al Result [facility] [address] [place] [address], [place] [phone] documented in this encounter Visit Diagnoses Diagnosis Acute intractable headache, unspecified headache type Primary hypertension Unspecified essential hypertension documented in this encounter Discontinued Medications Medication Sig Discontinue Reason Start Date End Da te alclomethasone (ACLOVATE) 0.05 % cream Therapy completed 05/21/2023 07/14/2024 glucose blood (Freestyle InsuLinx Test Strips) test strip Therapy completed 11/21/2020 07/14/2024 glucose blood (Freestyle InsuLinx Test Strips) test strip Therapy completed 11/21/2020 07/14/2024 ipratropium (ATROVENT) 21 mcg (0.03 %) nasal spray Therapy completed 03/28/2021 07/14/2024 ipratropium bromide (ATROVENT HFA INHL) Inhale 500 mcg by mouth. Therapy completed 04/25/2022 07/14/2024 levocetirizine (XYZAL) 5 mg tablet Take 1 tablet (5 mg total) by mouth 1 (one) time each day. Therapy completed 03/21/2023 07/14/2024 predniSONE (DELTASONE) 20 mg tablet Therapy completed 05/14/2023 07/14/2024 predniSONE (DELTASONE) 5 mg tablet Therapy completed 09/22/2023 07/14/2024 SUMAtriptan (IMITREX) 50 mg tablet Take 1 tablet (50 mg total) by mouth 1 (one) time if needed for migraine. May repeat dose once in 2 hours if no relief. Do not exceed 2 doses in 24 hours. Therapy completed 05/07/2024 07/14/2024 tezepelumab-ekko (TEZSPIRE) Inject 1.91 mL (210 mg total) under the skin 1 (one) time. Therapy completed 07/14/2024 FREESTYLE LANCETS MISC Therapy completed 06/27/2020 025 amitriptyline (ELAVIL) 25 mg tablet TAKE 1 TABLET BY MOUTH EVERYDAY AT BEDTIME Therapy completed 05/31/2024 07/14/2024 amoxicillin (AMOXIL) 875 mg tablet Take 1 tablet (875 mg total) by mouth 2 (two) times a day. Therapy completed 07/14/2024 azelastine (ASTELIN) 137 mcg (0.1 %) nasal spray Administer 2 sprays into each nostril 2 (two) times a day. Therapy completed 07/17/2021 07/14/2024 azithromycin (Zithromax) 250 mg tablet Take by mouth. Therapy completed 10/08/2023 07/14/2024 blood-glucose meter kit 1 Device by Not Applicable route. Therapy completed 06/27/2020 07/14/2024 blood-glucose meter kit Therapy completed 06/27/2020 07/14/2024 budesonide-formoteroL (SYMBICORT) 160-4.5 mcg/actuation inhaler Therapy completed 03/21/2023 07/15/19 ezetimibe (ZETIA) 10 mg tablet Take 1 tablet (10 mg total) by mouth 1 (one) time each day. Therapy completed 03/09/2024 07/14/2024 fluticasone propion-salmeteroL (ADVAIR DISKUS) 100-50 mcg/dose diskus inhaler Inhale 1 puff by mouth. Therapy completed 01/22/2021 07/14/2024 fluticasone propionate (FLONASE) 50 mcg/actuation nasal spray Administer 2 sprays into each nostril at bedtime. Therapy completed 07/17/2021 07/14/2024 FREESTYLE LANCETS MISC Therapy completed 06/27/2020 025 documented as of this encounter Orders Outpatient Referral Count Last Ordered Date Fir st Ordered Date AMB REFERRAL TO NEUROLOGY 1 07/14/2024 documented in this encounter Additional Health Concerns Assessment Noted Time PHQ-9 Depression Total Score: 10 025 11:23 PM EST documented as of this encounter Care Teams Bone Drier Relationship Specialty Start Date End Date Phill Meyer MD 175 [facility] [address] [place] [address] PCP - General Internal Medicine 04/07/24 documented as of this encounter
--- OUTSIDE RECORDS SUMMARY | 2024-07-18 21:06 | XMS_ITS | Clinical Summary ---
Author Organization [facility] Address [address] [place] [address] Care Team Providers Care Rn Operating Room Name Role Phone Dallin Briseno MD Primary Care Provider [phone] Social History Tobacco Use Types Packs/Day Years [...] age to complete this topic Care Teams Rn Operating Room Relationship Specialty Start Date End Date Dallin Briseno MD [address] [place] [address] ANDER Bean [phone] PCP - General Internal Medicine 02/21/20
--- OUTSIDE RECORDS SUMMARY | 2024-07-18 21:06 | XMS_ITS | Clinical Summary ---
Author Organization [facility] Address [address] [place] [address] Care Team Providers Care Collateral Specialist Name Role Phone Phill Meyer MD Primary Care Provider [phone] Social History Tobacco Use Types Packs/Day Years [...] Colonoscopy 2011 Colorectal Cancer Screening: Sigmoidoscopy 2011 Pneumococcal Vaccine: 50+ Ye ars (1 of - PCV) 2012 Influenza Vaccine (Season Ended) 2024 Hepatitis B Vaccine Aged Out No longe r eligible based on patient's age to complete this topic Insurance Medicare Medicaid [place] Care Teams Collateral Specialist Relationship Specialty Start Date End Date Phill Meyer MD 175 [facility] [address] [place] [address] PCP - General Internal Medicine 12/31/22
--- OUTSIDE RECORDS SUMMARY | 2024-07-18 21:06 | XMS_ITS | Clinical Summary ---
Author Organization [employer] Address [address] [place] [address] Phone Care Team Providers Care Commercial Lines Account Assistant Name Role Phone Phill Meyer MD Primary Care Provider [phone] Allergies Active Allergy Reactions Criticality Noted Date Comments Doxycycline Swelling High 01/03/2020 Paitent had swollen to his face and hands. Doxycycline Monohydrate Swelling High 01/03/2020 Viky had swollen to his face and hands. Shellfish Containing Products Hives High 11/14/2023 Hives and throat closing Medications albuterol HFA (PROAIR HFA ; PROVENTIL HFA ; VENTOLIN HFA) 90 mcg/actuation inhaler Sig - Route: Inhale 2 Puffs into the lungs See Admin Instructions. Take 2 puffs in the AM and 2 Puffs in the PM - Inhalation 08/20/19 23 Active aspirin 81 mg EC tablet Take 1 tablet (81 mg total) by mouth 1 (one) time each day. 04/25/19 23 Active cholecalcifero l (VITAMIN D-3) 50 mcg (2,000 unit) capsule Take 50 mcg by mouth. Active fluticasone-um eclidinium-amirah anterol (Trelegy Ellipta) 200-62.5-25 mcg inhaler Inhale 1 puff (200 mcg total) by mouth 1 (one) time each day. 10/15/19 24 Active hydrocortisone 2.5 % cream Apply twice a day as needed in the rash for 10 days 02/29/20 23 Active zinc 1 mg/mL injection Take by mouth 1 (one) time each day. Active multivitamin with minerals (CENTRUM/CERTA VIT) 18-400 mg-mcg tablet tablet Take by mouth 1 (one) time each day. Active furosemide (LASIX) 40 mg tablet Take 1 tablet (40 mg total) by mouth 1 (one) time each day. Active amLODIPine (NORVASC) 5 mg tablet Take 1 tablet (5 mg total) by mouth 1 (one) time each day. 90 each 1 02/19/20 24 025 Active EpiPen 2-Praveen 0.3 mg/0.3 mL injectionIndic ations:Angioed byron, sequela INJECT 0.3 ML (0.3 MG TOTAL) INTO THE THIGH IF NEEDED FOR ANAPHYLAXIS. USE DIRECTED 2 each 3 03/23/19 25 Active famotidine (PEPCID) 20 mg tablet Take 1 tablet (20 mg total) by mouth 2 (two) times a day. 01/13/20 24 Active rosuvastatin (CRESTOR) 40 mg tablet TAKE 1 TABLET BY MOUTH EVERY DAY 90 tablet 1 04/12/19 25 Active valsartan (DIOVAN) 160 mg tablet TAKE 1 TABLET BY MOUTH EVERY DAY 90 tablet 3 07/06/19 25 Active FREESTYLE LANCETS MISC 06/28/19 21 025 Discontinued( erapy completed) alclomethasone (ACLOVATE) 0.05 % cream 05/21/19 24 025 Discontinued( erapy completed) amoxicillin (AMOXIL) 875 mg tablet Take 1 tablet (875 mg total) by mouth 2 (two) times a day. 025 Discontinued( erapy completed) azelastine (ASTELIN) 137 mcg (0.1 %) nasal spray Administer 2 sprays into each nostril 2 (two) times a day. 07/18/19 22 025 Discontinued( erapy completed) azithromycin (Zithromax) 250 mg tablet Take by mouth. 10/08/19 24 025 Discontinued( erapy completed) blood-glucose meter kit 1 Device by Not Applicable route. 06/28/19 21 025 Discontinued( erapy completed) budesonide-for moteroL (SYMBICORT) 160-4.5 mcg/actuation inhaler 03/21/19 025 Discontinued( erapy completed) fluticasone propion-salmet Robbie (ADVAIR DISKUS) 100-50 mcg/dose diskus inhaler Inhale 1 puff by mouth. 01/23/20 025 Discontinued( erapy completed) fluticasone propionate (FLONASE) 50 mcg/actuation nasal spray Administer 2 sprays into each nostril at bedtime. 07/18/19 025 Discontinued( erapy completed) ipratropium (ATROVENT) 21 mcg (0.03 %) nasal spray 03/28/19 025 Discontinued(py completed) ipratropium bromide (ATROVENT HFA INHL) Inhale 500 mcg by mouth. 04/25/19 025 Discontinued( erapy completed) glucose blood (Freestyle InsuLinx Test Strips) test strip 11/22/19 025 Discontinued( erapy completed) levocetirizine (XYZAL) 5 mg tablet Take 1 tablet (5 mg total) by mouth 1 (one) time each day. 03/21/19 025 Discontinued(py completed) predniSONE (DELTASONE) 20 mg tablet 05/14/19 24 025 Discontinued( erapy completed) valsartan (DIOVAN) 160 mg tablet Take 1 tablet (160 mg total) by mouth. 04/25/19 025 Discontinued blood-glucose meter kit 06/28/19 025 Discontinued( erapy completed) glucose blood (Freestyle InsuLinx Test Strips) test strip 11/22/19 025 Discontinued(py completed) FREESTYLE LANCETS MISC 06/28/19 025 Discontinued(py completed) predniSONE (DELTASONE) 5 mg tablet 09/22/19 025 Discontinued( erapy completed) tezepelumab-ek ko (TEZSPIRE) Inject 1.91 mL (210 mg total) under the skin 1 (one) time. 025 Discontinued( erapy completed) ezetimibe (ZETIA) 10 mg tablet Take 1 tablet (10 mg total) by mouth 1 (one) time each day. 90 each 1 03/09/19 025 Discontinued( erapy completed) SUMAtriptan (IMITREX) 50 mg tablet Take 1 tablet (50 mg total) by mouth 1 (one) time if needed for migraine. May repeat dose once in 2 hours if no relief. Do not exceed 2 doses in 24 hours. 9 tablet 5 05/08/19 25 025 Discontinued( erapy completed) amitriptyline (ELAVIL) 25 mg tablet TAKE 1 TABLET BY MOUTH EVERYDAY AT BEDTIME 90 tablet 1 06/01/19 025 Discontinued( erapy completed) Active Problems Problem Noted Date Diagnosed Date [...] fourth >third, fifth digits. He has tried unmw-yna-uehelgq meds including NSAIDs, recently tried putting castor oil over the area with a heating pad. No recent physical therapy for his neck. He had cortisone injections x 6 in [place] a few years back, does not feel [...] . He had C-spine MRI 09-23 at [facility] that shows C6-7 degenerative disc osteophyte, severe [...] Watson had previously reviewed his MRI from [facility] revealing degenerative changes most significant at [...] months. I told him that Dr. Watson's church secretary would be in touch with him later [...] He had MRI lumbar spine 09/02/2023 at [facility], no significant stenosis noted, I reviewed images [...] vacation. He has history of triple bypass 2018. Class 1 obesity 11/14/2023 Groin pain, right [...] mellitus type 2, co ntrolled, without complications ([facility] [place], [facility] V28) 02/06/2020 Overview (11/14/2023): 02/2020 Lab test negative for COVID-19 virus 01/20/2020 COPD (chronic obstructive pu lmonary disease) ([facility] V24, [facility] V28) 12/22/2019 Asthma 12/07/2019 CAD (coronary artery [...] that showed patent bypass grafts and unchanged [place] multivessel CAD. On today's visit, the patient [...] feeling any better. GERD (gastroesophageal reflux disease) Overview (11/14/2023): H/o stomach ulcer Hyperlipidemia 12/07/2019 [...] oxymetry on 05/09/2020 shows O2>90-99.8% of time [facility] Home Sleep Apnea Test: Date 01/03/2021; Wt [...] Encounters Date Type Department Care Team Description 07/14/2024 2:00 PM EDT Consult [facility] [place] [facility] [place] [address] [place] [address] Yoni Nixon MD Acute intractable headache, unspecified headache type; Primary hypertension 06/24/2024 Telephone Internal Medicine - [place] [address] [place] [address] Phill Meyer MD Results (CT Head) 05/31/2024 4:19 PM EDT - 05/31/2024 11:59 PM EDT Hospital Encounter [facility] CT Scan [address] [place] [phone] Acute intractable headache, unspecified headache type; Primary hypertension Discharge Disposition: Home or Self Care 05/28/2024 Telephone [facility] [place] [address] [place] [address] Roseanna Sierra [place] 05/27/2024 Telephone [facility] [address] [place] [address] Barber Poole MD Pre-op Visit 05/07/2024 8:30 AM EST Office Visit Internal Medicine - [place] [address] [place] [phone] Phill Meyer MD Acute intractable headache, unspecified headache type (Primary Dx); Primary hypertension from Last 3 Months Immunizations Name Administration Dates Next Due Influenza, Unspecified 01/14/2020 Zoster recombinant (Shingrix) 19yo and older 01/2023,06/29/2022 Surgical History Surgery Date Site/Laterality Comments CORONARY ARTERY BYPASS GRAFT 04/2018 PROCEDURE: HISTORICAL CABG; COMMENT: x 3 HERNIA REPAIR 2008 PROCEDURE: HISTORICAL HERNIA REPAIR/UMB CARDIAC CATHETERIZATION 01/17/2019 PROCEDURE: HISTORICAL CARDIAC CATH; COMMENT: Severe [place] CAD- med management APPENDECTOMY 1973 PROCEDURE: HISTORICAL [...] CPAP Chronic CHF (congestive hear t failure) (CMS/HCC V24, CMS/[facility] V28) 12/07/2019 DX:Chronic CHF (congestive heart failure) ([facility]) GERD (gastroesophageal reflux disease) 0 DX:GERD (gastroesophageal reflux disease); COMMENT: H/o stomach ulcer COPD (chronic obstructive pu lmonary disease) ([facility] V24, [facility] V28) 12/22/2019 DX:COPD (chronic o bstructive pulmonary disease) ([facility]) Memory changes DX:Memory change s Anxiety disorder [...] care for your loved ones. For example, school childcare attendant or elderly care for an older adult? [...] Pulse 76 07/14/2024 2:02 PM EDT Temperature 36.6 ??C (97.9 ??F) 05/07/2024 8:25 AM ES T Respiratory Rate 21 04/18/2024 12:04 PM EST Oxygen Saturation 99% 07/14/2024 2:02 PM EDT Inhaled Oxygen Concentration - - Weight 109 kg (240 lb) 07/14/2024 2:02 PM EDT Height 185.4 cm (6' 1 ) 07/14/2024 2:02 PM EDT Body Mass Index 31.66 07/14/2024 2:02 PM EDT Plan of Treatment Upcoming Encounters Date Type Department Care Team (Late st Contact Info) Description 07/21/2024 4:00 PM EDT Office Visit Internal Medicine - [place] [address] [facility] [address] [place] [phone] Phill Meyer MD [address] [place] [address] 01/17/2025 3:00 PM EST Office Visit [facility] [address] [place] [address] Yoni Nixon MD [address] [place] [address] Health Maintenance Due Date Last [...] years 1-dose series) 2022 Diabetes: Blood Sugar Control Test (HGBA1C) 10/17/2022 04/19/2022 COVID-19 Vaccine ( season) 2023 Influenza Vaccine (Season Ended) 2024 01/14/2020 Depression Screening 05/06/2025 05/06/2024 Social Influencers of Health Screening 05/06/2025 05/06/2024 Diabetes: Annual GFR (Glomerular Filtration Rate) 07/14/2025 07/14/2024, 04/18/2024, 01/12/2024, Additional history exists Hypertension/CHF/CAD Annual BMP Blood Test 07/14/2025 07/14/2024, 04/18/2024, 01/12/2024, Additional history exists Cholesterol Screening (Lipid Panel) 01/11/2029 01/12/2024, 04/19/2022 [...] 20 months Aged Out No longer eligible based on patient's age to complete this topic Varicella Vaccines Aged Out No longer eligible based on patient's age to complete this topic Procedures Procedure Name Priority Date/Time Associated Diagnosis Comments CBC WITH AUTO DIFFERENTIAL Routine 07/14/2024 2:41 PM EDT Acute intractable headache, unspecified headache type BORRELIA BURGDORFERI ANTIBODY Routine 07/14/2024 2:41 PM EDT Acute intractable headache, unspecified headache type CBC AND DIFFERENTIAL Routine 07/14/2024 2:41 PM EDT Acute intractable headache, unspecified headache type BUN Routine 07/14/2024 2:41 PM EDT Acute intractable headache, unspecified headache type CREATININE, SERUM Routine 07/14/2024 2:4 1 PM EDT Acute intractable headache, unspecified headache type VITAMIN D 25 HYDROXY Routine 07/14/2024 2:41 PM EDT Acute intractable headache, unspecified headache type VITAMIN B12 Routine 07/14/2024 2:41 PM EDT Acute intractable headache, unspecified headache type CT HEAD WO CONTRAST Routine 05/31/2024 4 :36 PM EDT Acute intractable headache, unspecified headache type Primary hypertension LIPID PANEL Routine 01/12/2024 12:21 PM EST Pure hypercholesterolemia HEMOGLOBIN A1C Routine 04/19/2022 HM COLONOSCOPY Routine 07/18/2020 URINE ALBUMIN CREATININE RATIO Routine 02/04/2020 from Last 3 Months or Most Recently Relevant to Health Maintenance Results * (ABNORMAL) CBC auto differential (07/14/2024 2:41 PM EDT) [facility] WBC 6.2 4.8 - 10.8 K/mcL LAB HEMETOLOGY METHOD 07/14/2024 6:56 PM EDT [facility] RBC 5.30 4.50 - 5.50 M/mcL LAB HEMETOLOGY METHOD 07/14/2024 6:56 PM EDT [facility] Hemoglobin 16.5 13.5 - 17.5 g/dL LAB HEMETOLOGY METHOD 07/14/2024 6:56 PM EDT [facility] Hematocrit 48.4 42.0 - 54.0 % LAB HEMETOLOGY METHOD 07/14/2024 6:56 PM EDT [facility] MCV 92.2 79.0 - 98.0 FL LAB HEMETOLOGY METHOD 07/14/2024 6:56 PM EDT [facility] MCH 31.4 27.0 - 32.0 pcg LAB HEMETOLOGY METHOD 07/14/2024 6:56 PM EDT [facility] MCHC 34.1 32.0 - 37.0 g/dL LAB HEMETOLOGY METHOD 07/14/2024 6:56 PM EDT [facility] RDW 12.6 11.0 - 15.0 % LAB HEMETOLOGY METHOD 07/14/2024 6:56 PM EDT [facility] Platelets 176 130 - 400 K/mcL LAB HEMETOLOGY METHOD 07/14/2024 6:56 PM EDT [facility] MPV 11.4(H) 7.0 - 11.0 FL LAB HEMETOLOGY METHOD 07/14/2024 6:56 PM EDT [facility] NRBC 0.0 <1.0 % LAB HEMETOLOGY METHOD 07/14/2024 6:56 PM [facility] NRBC Absolute 0.00 <0.10 K/mcL LAB HEMETOLOGY METHOD 07/14/2024 6:56 PM EDT [facility] Neutrophils Relative 65.7 % LAB HEMETOLOGY METHOD 07/14/2024 6:56 PM EDT [facility] Lymphocytes Relative 20.3 % LAB HEMETOLOGY METHOD 07/14/2024 6:56 PM [facility] Monocytes Relative 10.7 % LAB HEMETOLOGY METHOD [facility]/14[facility]24 6:[facility] Eosinophils Relative 2.4 % LAB HEMETOLOGY METHOD 07/14/2024 6:56 PM [facility] Basophils Relative 0.6 % LAB HEMETOLOGY METHOD 07/14/2024 6:56 PM [facility] Immature Granulocytes Relative 0.3 % LAB HEMETOLOGY METHOD 07/14/2024 6:56 PM [facility] Neutrophils Absolute 4.05 1.50 - 7.00 K/mcL LAB HEMETOLOGY METHOD 07/14/2024 6:56 PM EDT [facility] Lymphocytes Absolute 1.25 1.00 - 5.00 K/mcL LAB HEMETOLOGY METHOD 07/14/2024 6:[facility] Monocytes Absolute 0.66 0.20 - 1.00 K/mcL LAB HEMETOLOGY METHOD 07/14/2024 6:56 [facility] Eosinophils Absolute 0.15 0.00 - 0.50 K/mcL LAB HEMETOLOGY METHOD 07/14/2024 6:56 PM EDT [facility] Basophils Absolute 0.04 0.00 - 0.20 K/[facility] LAB HEMETOLOGY METHOD 07/14/2024 6:56 PM EDT [facility] Immature Granulocytes Absolute 0.02 0.00 - 0.03 K/[facility] LAB HEMETOLOGY METHOD 07/14/2024 6:56 PM EDT [facility] Blood Venous blood specimen / Unknown Venipuncture / Unknown 07/14/2024 2:41 PM EDT 07/14/2024 2:41 PM EDT us Yoni Nixon MD LAB BLOOD ORDERABLES Fin al Result Performing Organization Address [facility] de Phone Number [facility] [address] [place] [address], [place] [phone] * Borrelia burgdorferi antibody (07/14/2024 2:41 PM EDT) [facility] Lyme Ab Negative Negative LAB CHEMISTRY METHOD 07/15/2024 8:40 AM EDT [facility] Comment: No laboratory evidence of infection [...] ORDERABLES Fin al Result Performing Organization Address [facility]/ZIP Co de Phone Number [facility] [address] [place] [address], [place] [phone] * Creatinine (07/14/2024 2:41 PM EDT) Creatinine 1.09 0.70 - 1.30 mg/dL LAB CHEMISTRY METHOD 07/14/2024 6:41 PM EDT [facility] eGFR 77 >=60 mL/min/1. 73m2 LAB CHEMISTRY METHOD 07/14/2024 6:41 PM EDT [facility] Comment:Calculation based on the Chronic Kidney Disease Epidemiology Collaboration (CKD-EPI) equation refit without adjustment for race. Blood Venous blood specimen / Unknown Venipuncture / Unknown 07/14/2024 2:41 PM EDT 07/14/2024 2:41 PM EDT us Yoni Nixon MD LAB BLOOD ORDERABLES Fin al Result Performing Organization Address [facility]/ZIP Co de Phone Number [facility] [address] [place] [address], [place] [phone] * Vitamin D 25 hydroxy (07/14/2024 2:41 PM EDT) Vit D, 25-Hydroxy 32.5 30.0 - 80.0 ng/mL LAB CHEMISTRY METHOD 07/14/2024 7:21 PM EDT [facility] Blood Venous blood specimen / Unknown Venipuncture / Unknown 07/14/2024 2:41 PM EDT 07/14/2024 2:41 PM EDT us Yoni Nixon MD LAB BLOOD ORDERABLES Fin al Result Performing Organization Address City/[facility]/ZIP Co de Phone Number [facility] [address] [place] [address], [place] [phone] * BUN (07/14/2024 2:41 PM EDT) BUN 16 5 - 25 mg/dL LAB CHEMISTRY METHOD 07/14/2024 6:41 PM EDT [facility] Blood Venous blood specimen / Unknown Venipuncture / Unknown 07/14/2024 2:41 PM EDT 07/14/2024 2:41 PM EDT us Yoni Nixon MD LAB BLOOD ORDERABLES Fin al Result Performing Organization Address [facility]/ZIP Co de Phone Number [facility] [address] [place] [address], [place] [phone] * Vitamin B12 (07/14/2024 2:41 PM EDT) [facility] Vitamin B-12 469 250 - 900 pcg/mL LAB CHEMISTRY METHOD 07/14/2024 7:05 PM EDT [facility] Blood Venous blood specimen / Unknown Venipuncture / Unknown 07/14/2024 2:41 PM EDT 07/14/2024 2:41 PM EDT us Yoni Nixon MD LAB BLOOD ORDERABLES Fin al Result Performing Organization Address [facility] de Phone Number [facility] [address] [place] [address], [place] [phone] * CT Head wo Contrast (05/31/2024 4:36 PM EDT) Anatomical Region Laterality Modality Head and Neck Computed Tomogra phy 06/01/2024 1:54 PM EDT Impressions 06/01/2024 2:21 PM EDT No acute intracranial findings. -------- FINAL REPORT -------- Dictated By: lAbert Bueno Dictated Date: 06/01/2024 13:54 ET Assigned Physician: Albert Bueno Reviewed and Electronically Signed By: Albert Bueno Signed Date: 06/01/2024 14:21 ET Workstation ID: [id number] Transcribed By: Self Edit Transcribed Date: 06/01/2024 [...] Signed Date: 06/01/2024 14:21 ET Workstation ID: [id number] Transcribed By: Self Edit Transcribed Date: 06/01/2024 13:54 ET Phill Meyer MD [facility] CT PROCEDURES Final Result * (ABNORMAL) Lipid panel (01/12/2024 12:21 PM EST) Cholesterol Total 198 100 - 199 mg/dL [facility] Triglycerides 124 0 - 149 mg/dL [facility] HDL Cholesterol 45 >39 mg/dL [facility] VLDL Cholesterol Calculated 22 5 - 40 mg/dL [facility] LDL Chol Calc (NIH) 131(H) 0 - 99 mg/dL [facility] Blood Venous blood specimen / Unknown 01/12/2024 12:21 PM EST 01/12/2024 Narrative [facility] - 01/13/2024 3:06 AM EST Performed at: ??01 - [facility] [address] ??[id number] [employer] Equipment Sales Engineer: Deepa Peacock MD, Phone: ??[phone] Barber Poole MD LAB BLOOD ORDERABLES F inal Result [facility] * Hemoglobin A1c (04/19/2022) Pathologist [facility] Hemoglobin A1C 6.5 <=6.5 % Blood Venous blood specimen / Unknown Result [facility] Historical Provider LAB BLOOD ORDERABLES Ni l Result * Colonoscopy (07/18/2020) Pathologist [facility] Colonoscopy normal, abstracted Anatomical Region Laterality Modality Other Result [facility] Historical Provider HEALTH MAINTENANCE Final Result * Urine Albumin Creatinine Ratio (02/04/2020) Pathologist [facility] Urine Albumin Creatinine Ratio abstracted Historical Provider HEALTH MAINTENANCE Final Result from Last 3 Months or Most Recently Relevant to Health Maintenance Insurance [facility] MEDICARE Member Subscriber Plan / Payer (Ef fective 2023-Present) Name:Heraclio Ramon Relation to Subscriber:Self Name:Heraclio Ramon Payer ID:[id number] Group ID:[id number] Type:Not on file Address: [address] [place] [address] Care Teams Commercial Lines Account Assistant Relationship Specialty Start Date End Date Phill Meyer MD [address] [place] [address] PCP - General Internal Medicine 04/07/24
--- OUTSIDE RECORDS SUMMARY | 2024-07-18 21:06 | XMS_ITS ---
Author Organization [facility] Address [address] [place] [address] Care Team Providers Care Sales Trainer Name Role Phone Aly Adhikari, * Prabhjot Primary Care Provider Niranjan Grace Unavailable [phone] Migration, Provider Unavailable Unavailable Allergies Allergen (clinical drug ingredient) Drug/Non Drug Allergy documented on EMR Reaction Allergy Type Onset Date Status SHELL FISH. (uncoded) Unknown Allergy [facility] Encounter Medications Medication SIG (Take, Route, [...] Active Encounters Encounter Location Date Provider Diagnosis [facility] [address] [place] [address] 11/22/2023 Provider Migration Gastro-esophageal reflux disease without [...] * ELIZABETH MENENDEZDOB: [birth year] (64 yo M)Acc No.[id number]:11/22/2023 Patient:?ELIZABETH MENENDEZ Provider:? :1960???Age:63 Y???Sex:Male Daren e:11/22/2023 Address:[address] [place], [place] [id number] Pcp:* Prabhjot Lu M.D. Subjective: * Chief Complaints: * ???1. [facility] To [facility] Con version Encounter. * Medical History:? * [...] Electronic signature of Prov ider Migration on 07/18/2024 at 09:05 PM EDT Sign off status: Pending * Provider:? Date:?11/22/2023 Generated for Alexis murphy/Eligio/Denizitting on:?07/18/2024 09:05 PM EDT
== END ==
LOC: HO.SL 20:30
PROVIDERS: PCP Internal Medicine; Visit Provider Nurse Practitioner Family
DX: G47.33 Obstructive sleep apnea (adult) (pediatric) (principal); F09 Unspecified mental disorder due to known physiological condition
CPT/HCPCS: 95810

== ENCOUNTER → 2024-07-18 20:57 | Outpatient (BNV) | payer OTHER, SELFPAY | PROVIDERS: PCP Internal Medicine; Visit Provider Psychiatry & Neurology Neurology | DX: G47.33 Obstructive sleep apnea (adult) (pediatric) (principal) | CPT/HCPCS: 95810 ==